=== PATIENT | female | born 1945 | race Hispanic/Latino ===

== ENCOUNTER 2019-09-19 07:58 | Inpatient (IN) | payer OTHER ==
--- NOTE | 2019-09-12 10:21 | RAD REPORT ---
EXAM DESCRIPTION: RAD - Chest Pa And Lat (2 Views) - 09/12/2019 10:04 am CLINICAL HISTORY: preop Chest pain. COMPARISON: No comparisons FINDINGS: The lungs are mildly emphysematous but clear. The heart is normal in size. No displaced fr actures. IMPRESSION: Mild COPD.
[2019-09-12 10:56] LABS: Absolute Lymphocytes (CBC) 1.7 K/uL (0.7-4.9); Basophils % 1.1 % (0-1.3); Hematocrit 39.6 % (36.0-45.0); Lymphocytes % 28.8 % (15.3-44.8); MPV 8.7 fL (7.6-11.3); RBC Red Blood Cell Count 4.43 M/uL (3.86-4.86)
[2019-09-12 11:00] LABS: Protime INR 1.05
[2019-09-12 11:05] LABS: BUN Blood Urea Nitrogen 15 mg/dL (7-18); Bicarbonate 32 mmol/L (21-32); Glucose Level 83 mg/dL (74-106); Potassium 3.6 mmol/L (3.5-5.1); Sodium Level 140 mmol/L (136-145)
--- NOTE | 2019-09-12 11:57 | EKG ---
Test Date: 2019-09-12 Test Time: 09:42:04 Groundskeeper Supervisor: FAZAL MEASUREMENT RESULTS: Intervals: Rate: 59 GA: 146 QRSD: 88 QT: 414 QTc: 409 Cushing: P: 8 GA: 146 QRS: 0 T: 60 INTERPRETIVE STATEMENTS: Sinus bradycardia Otherwise normal ECG Compared to ECG 10/04/2016 13:23:08 Sinus rhythm no longer present Electronically Signed On 09-12-19 11:56:25 LOG CUT OFF SAWYER by Madi Ledesma
[~2019-09-19 07:58] MED LIST: LIDOCAINE 2% MPF 5 ML VIAL ONE
--- OUTSIDE RECORDS SUMMARY | 2019-09-19 08:01 | XMS REPORT ---
:1945 [facility] Address [address] [place] [address] Dr. Reyes. [address] [place] [id number] Care Team Providers Name Role Phone DR MERCED DELVALLE Unavailable Unavailable Problems This patient has no known problems. Allergies, Adverse Reactions, Alerts This patient has no known allergies or adverse reactions. Medications This patient has no known medications. Encounters Start End Encounter Admission Attending Care Care Encounter Date/Time Date/Time Type Type Clinicians Facility Department ID 2017-01-20 Inpatient MENDY BROOKS [facility] [id number] 05:00:00 MERCED
[2019-09-19] MEDS ORDERED: Ringers Lactate 1,000 ML IV ONE ×2 (08:50→10:28)
[2019-09-19] MEDS ORDERED: CEFAZOLIN/SWI 1gm 1 GM/10 ML SYR ONE (08:50)
[2019-09-19] MEDS ORDERED: MIDAZOLAM HCL 2 MG/2 ML INJ ONE (09:21)
[2019-09-19] MEDS ORDERED: FENTANYL CITR 100 MCG/2 ML ONE (09:21)
[2019-09-19] MEDS ORDERED: BUPIVACAINE 0.25% PF 10 ML VIAL ONE (09:22)
[2019-09-19] MEDS ORDERED: propofoL 200 MG/20 ML VIAL IV ONE (09:59)
[2019-09-19] MEDS ORDERED: LIDOCAINE 2% MPF 5 ML VIAL ONE (09:59)
[2019-09-19] MEDS ORDERED: ROCURONIUM 50 MG/5 ML VIAL IV ONE (09:59)
[2019-09-19] MEDS ORDERED: TRANEXAMIC ACID 1,000 MG in NA CHLORIDE 0.9% 50 ML IV SCH (10:00)
[2019-09-19] MEDS ORDERED: KETAMINE HCL 500 MG/5 ML VIAL ONE (11:00)
[2019-09-19] MEDS: BUPIVACA 0.5%/EPI 0.0005%/PF 30 ML VIAL ONE ×2 (11:02→12:49)
[2019-09-19] MEDS ORDERED: HYDROMORPHONE HCL 1 MG/ML INJ ONE (11:06)
[2019-09-19] MEDS ORDERED: NS 0.9% VIAL 10 ML ONE (11:06)
[2019-09-19] MEDS ORDERED: KETOROLAC 30 MG/ML INJ ONE (13:33)
--- NOTE | 2019-09-19 13:37 | P.BOP ---
Preoperative diagnosis: knee osteoarthritis Postoperative diagnosis: same Primary procedure: right total knee arthroplasty Community Engagement Representative: NONE,NONE Estimated blood loss: 20 cc Specimen: right knee bone remnants Findings: see dictation Anesthesia: General Complications: None Drain(s): Urinary catheter Implants: Biomet Merle Persona, 9 Narrow CR femur, E tibia, 12 CR poly Fluids & blood products: per anesthesia record; TT: 115 mins @ 250 mmHg Transferred to: Recovery Room Condition: Good
[2019-09-19] MEDS ORDERED: DOCUSATE NA 100 MG CAP PO PRN (13:38)
[2019-09-19] MEDS ORDERED: MORPHINE 2 MG/ML SYR IV PRN (13:38)
--- NOTE | 2019-09-19 14:10 | RAD REPORT ---
EXAM DESCRIPTION: RAD - Knee Right 2 View - 09/19/2019 2:02 pm CLINICAL HISTORY: Post Op, right total knee prosthesis placement COMPARISON: No comparisons FINDINGS: Right knee prosthesis has been placed. Hardware appears well positioned with no suspicious or unexpected bone or implant finding. Skin mary are present in the midline. Normal postoperative soft tissue changes are seen. IMPRESSION: Right knee prosthesis placement images showing no suspicious or unexpected finding.
[2019-09-19] MEDS ORDERED: ONDANSETRON 4 MG/2 ML VIAL ONE (14:35)
[2019-09-19 14:38] LABS: Hematocrit 37.5 % (36.0-45.0)
[2019-09-19 15:56] VITALS: BMI 24.4
[2019-09-19] MEDS: CEFAZOLIN/SWI 1gm 1 GM/10 ML SYR IVP SCH (16:44)
[2019-09-19] MEDS ORDERED: PNEUMOCOCCAL VACCINE 0.5 ML IMVAC ONE (17:00)
[2019-09-19] MEDS: TRAMADOL HCL 50 MG TAB PO PRN (20:13)
[2019-09-20] MEDS: CEFAZOLIN/SWI 1gm 1 GM/10 ML SYR IVP SCH ×2 (01:26→08:49)
--- NOTE | 2019-09-20 01:34 | OP ---
Date of Procedure: 09/19/2019 Surgeon: Rodrigo Sommer MD Postoperative Diagnosis: Right knee osteoarthritis. Postoperative Diagnosis: Right knee osteoarthritis. Procedure Performed: Right total knee arthroplasty. Anesthesia: General LMA. Fluids: Per Anesthesia record. Estimated Blood Loss: 20 cc. Complications: None. Tourniquet Time: 150 minutes at 250 mmHg. Implants: A Biomet Merle Persona size 9 narrow CR femur, size E tibia, and 12 CR poly. Indication For Procedure: Sarah is a 74-year-old female presenting to my clinic with signs and symptoms consistent with severe osteoarthritis with valgus deformity. The patient failed conservative treatment measures including physical therapy, corticosteroid and viscosupplementation injection as well as bracing. She had significant valgus deformity. I discussed with the patient at length risks and benefits associated with operative and nonoperative treatment. She expressed understanding and elected to proceed with the operative treatment. Description Of Procedure: After informed consent was obtained, the patient was identified in the preoperative holding area. The right lower extremity was marked. The patient was then taken back to the PACU where she underwent an adductor canal block performed by Anesthesia. She was then taken back to the operating room, transferred to the operating table in the supine fashion and placed under general LMA anesthesia. Right lower extremity was then prepped and draped in the usual sterile fashion. A time-out was initiated. The correct patient and procedure were confirmed and identified. The patient did receive her preoperative prophylactic antibiotics. The right lower extremity was exsanguinated using an Esmarch and the tourniquet was inflated to 250 mmHg. Approximately 15 cm longitudinal incision was made over the anterior aspect of the knee centered over the patella. Dissection was then taken down to the extensor mechanism where a median parapatellar arthrotomy was performed. The patella was everted. There was no significant wear of the undersurface of the patella and no resurfacing was elected. Osteophytes were then debrided using a rongeur on the superior and inferior medial and lateral aspects of the patella. Medial capsular tissue was then elevated off the proximal tibial for exposure. Infrapatellar fat pad was excised as well as medial and lateral menisci as well as the ACL. Preoperatively, the patient had an MRI for creation of the cutting block guide. The guide was then placed over the distal femur and pinned into position and first a distal femoral cutting guide was placed over the pins and the distal femoral cut was then placed. The 4 in 1 cutting guide was then placed over the distal aspect of the distal femur and anterior and posterior cuts were made as well as anterior and posterior chamfer cuts. A size 9 CR femur was then selected, narrow size was selected as well and was put into position. Next, the proximal tibial femoral guide was then placed, tamped into position over the proximal tibia and pins were placed. Alignment kristi was then placed and there was good overall alignment with posterior slope as well as varus/valgus alignment. The proximal tibia cutting guide was then placed and the proximal tibia was cut until the 10 mm spacer fit well in both flexion and extension. There was significant instability. Posterolateral capsule was gently released as well as the IT band was pie crusted given the patient's significant valgus deformity to aid with fit laterally. After this was completed, there was good overall stability and fit in flexion and extension. The trial components were then placed using a size 9 femur and a size E tibia with a 12 mm poly. There was good overall range of motion and stability. After this was confirmed, the wound was then irrigated thoroughly with normal saline. The knee was then injected with 30 mL of 5% Marcaine with epinephrine in the posterior capsule, periosteum, and quad tendon and muscle as well as the anterior soft tissues of the tibia. The femur was drilled as well as the tibia was punched. The cement was prepared on the back table and placed on the tibia. Final tibial component was placed, which was incised E tibia. Excess cement was then removed using a [place] elevator followed by placement of the 9 narrow CR femur. Excess cement was removed using a [place] elevator. Size 12 mm poly was then placed. The knee was held in extension as the cement hardened. The knee was then ranged. There was good overall patellar tracking as well as stability in flexion and extension. The final size 12 CR poly was then placed and locked into position. The wound was then irrigated thoroughly with normal saline. Tourniquet was let down. Hemostasis was achieved using Bovie electrocautery. The extensor mechanism was then approximated using a #1 Vicryl in an interrupted and running fashion. The superficial fascia was approximated using a 0 Vicryl. The subcutaneous tissue was approximated using a 2-0 Vicryl. Skin was approximated using mary. Sterile dressings were applied. The patient was awakened and transferred to the PACU in stable condition. Postoperative Plan: Physical Therapy will be consulted to aid with mobilization. The patient is to stay for least 2 midnights and will plan on transfer to inpatient rehabilitation as patient does live by herself and is debilitated and will need significant postoperative physical therapy to regain independence. CV/MODL Voice ID: [id number] Report ID: [id number]
[2019-09-20] MEDS: HYDROCODONE/APAP 7.5/325 MG TAB PO PRN ×2 (02:25→18:05)
[2019-09-20] MEDS: ENOXAPARIN 30 MG/0.3 ML SQ SCH ×3 (05:19→20:27)
[2019-09-20 05:54] LABS: Absolute Lymphocytes (CBC) 1.7 K/uL (0.7-4.9); Basophils % 0.1 % (0-1.3); Hematocrit 31.5 % (36.0-45.0); MPV 8.9 fL (7.6-11.3); RBC Red Blood Cell Count 3.59 M/uL (3.86-4.86)
[2019-09-20 06:10] LABS: BUN Blood Urea Nitrogen 13 mg/dL (7-18); Bicarbonate 30 mmol/L (21-32); Glucose Level 95 mg/dL (74-106); Potassium 3.7 mmol/L (3.5-5.1); Sodium Level 137 mmol/L (136-145)
--- NOTE | 2019-09-20 07:55 | P.PN ---
Subjective Date of Service: 09/20/19 Chief Complaint: s/p R TKA Subjective: Improving, Working w/ PT pain controlled; reports some heel pain from use of CPM; heel padded at this time Physical Examination - Vital Signs Temperature: 98.6 F Blood Pressure: 110/59 Pulse: 66 Respirations: 14 Pulse Ox (%): 97 - Physical Exam General: Alert, In no apparent distress Musculoskeletal: Other (RLE: dressing c/d/i; +EHL/FHL/GSC/TA; sensation grossly intact distally; heel padded) - Studies Laboratory Data (last 24 hrs) 09/20/19 05:04: Sodium 137, Potassium 3.7, BUN 13, Creatinine 0.62, Glucose 95 09/20/19 05:04: WBC 11.1 H D, Hgb 10.9 L, Hct 31.5 L D, Plt Count 230 D 09/19/19 14:00: Hgb 12.5, Hct 37.5 Assessment And Plan - Plan Sarah is a 74 yo female s/p right total knee arthroplasty POD#1 -d/c michel tang -lovenox for DVT prophylaxis -acute expected postoperative blood loss anemia; recheck h/h in AM -inpatient rehab pending eval at [facility]
[2019-09-20] MEDS: CELECOXIB 100 MG CAPSULE PO SCH (08:49)
[2019-09-20] MEDS: TRAMADOL HCL 50 MG TAB PO PRN ×2 (14:50→22:12)
[2019-09-21] MEDS: HYDROCODONE/APAP 7.5/325 MG TAB PO PRN ×2 (03:48→21:00)
[2019-09-21 04:37] LABS: Absolute Lymphocytes (CBC) 1.7 K/uL (0.7-4.9); Basophils % 0.4 % (0-1.3); Hematocrit 30.1 % (36.0-45.0); Lymphocytes % 18.5 % (15.3-44.8); MPV 8.5 fL (7.6-11.3); RBC Red Blood Cell Count 3.31 M/uL (3.86-4.86)
[2019-09-21] MEDS: CELECOXIB 100 MG CAPSULE PO SCH (08:53)
[2019-09-21] MEDS: ENOXAPARIN 30 MG/0.3 ML SQ SCH ×2 (08:53→20:58)
[2019-09-21] MEDS: TRAMADOL HCL 50 MG TAB PO PRN ×2 (10:43→17:20)
--- NOTE | 2019-09-21 11:22 | P.PN ---
Subjective Date of Service: 09/21/19 Chief Complaint: s/p R TKA Subjective: Ambulating, Working w/ PT pain controlled; progressing with physical therapy Physical Examination - Vital Signs Temperature: 98.2 F Blood Pressure: 104/57 Pulse: 86 Respirations: 18 Pulse Ox (%): 98 - Physical Exam General: Alert, In no apparent distress Musculoskeletal: Other (RLE: dressing c/d/i; +EHL/FHL/GSC/TA; sensation grossly intact distally) - Studies Laboratory Data (last 24 hrs) 09/21/19 04:03: WBC 9.2 D, Hgb 10.3 L, Hct 30.1 L, Plt Count 219 Assessment And Plan - Plan Sarah is a 74 yo female s/p right total knee arthroplasty POD#2 -continue with PT; WBAT RLE -lovenox for DVT prophylaxis -h/h stabilizing -inpatient rehab pending eval at [facility]
[2019-09-22] MEDS: TRAMADOL HCL 50 MG TAB PO PRN ×2 (04:20→17:59)
[2019-09-22] MEDS: ENOXAPARIN 30 MG/0.3 ML SQ SCH ×2 (08:06→19:57)
[2019-09-22] MEDS: HYDROCODONE/APAP 7.5/325 MG TAB PO PRN ×2 (08:07→19:58)
[2019-09-22] MEDS: CELECOXIB 100 MG CAPSULE PO SCH (08:07)
--- NOTE | 2019-09-22 23:05 | P.PN ---
Subjective Date of Service: 09/22/19 Chief Complaint: s/p R TKA Subjective: Improving, Working w/ PT pain controlled; progressing with physical therapy Physical Examination - Vital Signs Temperature: 98.9 F Blood Pressure: 150/67 Pulse: 103 Respirations: 18 Pulse Ox (%): 100 - Physical Exam General: Alert, In no apparent distress Musculoskeletal: Other (RLE: dressing c/d/i; moves knee without pain; NVI distally) Assessment And Plan - Plan Sarah is a 74 yo female s/p right total knee arthroplasty POD#3 -continue with PT; WBAT RLE -lovenox for DVT prophylaxis -recommended inpatient rehab however was denied by her insurance company -await possible transfer and approval to SNF as patient lives alone and is not safe for discharge home at this time
[2019-09-23] MEDS: TRAMADOL HCL 50 MG TAB PO PRN (00:54)
[2019-09-23] MEDS: HYDROCODONE/APAP 7.5/325 MG TAB PO PRN ×3 (06:32→20:44)
[2019-09-23] MEDS: CELECOXIB 100 MG CAPSULE PO SCH (08:46)
[2019-09-23] MEDS: ENOXAPARIN 30 MG/0.3 ML SQ SCH ×2 (08:47→20:42)
--- NOTE | 2019-09-23 12:07 | P.PN ---
Subjective Date of Service: 09/23/19 Chief Complaint: s/p R TKA Subjective: Ambulating, Improving, Working w/ PT pain controlled; progressing with physical therapy Physical Examination - Vital Signs Temperature: 97.6 F Blood Pressure: 126/64 Pulse: 71 Respirations: 16 Pulse Ox (%): 96 - Physical Exam General: Alert, In no apparent distress Musculoskeletal: Other (RLE: dressing c/d/i; +EHL/FHL/GSC/TA; sensation grossly intact distally) Assessment And Plan - Plan Sarah is a 74 yo female s/p right total knee arthroplasty POD#4 -continue with PT; WBAT RLE -lovenox for DVT prophylaxis -await possible transfer and approval to SNF as patient lives alone and is not safe for discharge home at this time
[2019-09-24] MEDS: TRAMADOL HCL 50 MG TAB PO PRN (01:08)
[2019-09-24] MEDS: HYDROCODONE/APAP 7.5/325 MG TAB PO PRN ×3 (06:38→19:16)
[2019-09-24] MEDS: ENOXAPARIN 30 MG/0.3 ML SQ SCH ×2 (08:02→21:26)
[2019-09-24] MEDS: CELECOXIB 100 MG CAPSULE PO SCH (08:02)
--- NOTE | 2019-09-24 12:35 | P.PN ---
Subjective Date of Service: 09/24/19 Chief Complaint: s/p R TKA Subjective: Ambulating, Improving, Working w/ PT pain controlled Physical Examination - Vital Signs Temperature: 97.5 F Blood Pressure: 117/57 Pulse: 80 Respirations: 18 Pulse Ox (%): 99 - Physical Exam General: Alert, In no apparent distress Musculoskeletal: Other (RLE: incision c/d/i; no erythema or active drainage; + ecchymoses over the medial knee; NVI distally) Assessment And Plan - Plan Sarah is a 74 yo female s/p right total knee arthroplasty POD#5 -dressing changed today without complication -continue with PT; WBAT RLE -lovenox for DVT prophylaxis -await possible transfer and approval to SNF as patient lives alone and is not safe for discharge home at this time
[2019-09-25 00:33] VITALS: O2SAT 99
[2019-09-25] MEDS: HYDROCODONE/APAP 7.5/325 MG TAB PO PRN ×2 (03:17→08:44)
[2019-09-25] MEDS: CELECOXIB 100 MG CAPSULE PO SCH (08:43)
[2019-09-25] MEDS: ENOXAPARIN 30 MG/0.3 ML SQ SCH (08:44)
[2019-09-25] MEDS: TRAMADOL HCL 50 MG TAB PO PRN (11:12)
[2019-09-25 14:53] VITALS: BP 111/59; TEMP 98.3
== END 2019-09-25 11:53 | DRG 470 ==
LOC: OR 07:58 → 2ND 14:01
PROVIDERS: ADMIT Orthopaedic Surgery Sports Medicine; ATTEND Orthopaedic Surgery Sports Medicine
PROC: 0SRC0J9 Replacement of Right Knee Joint with Synthetic Substitute, Cemented, Open Approach (ICD-10-PCS; principal; 2019-09-19 09:30)
DX: M17.11 Unilateral primary osteoarthritis, right knee (principal); D62 Acute posthemorrhagic anemia; I10 Essential (primary) hypertension; E78.5 Hyperlipidemia, unspecified
CPT/HCPCS: 36415; 71046; 80048; 85014; 85018; 85025; 85610; 85730; 88304; 88311; 93005; 97110; 97116; 97139; 97161; 97530; J0690; J1170; J1650; J2250; J2405; J2704; J3010; J7120

== ENCOUNTER 2022-10-25 15:42 | Emergency (ER) | payer OTHER ==
--- OUTSIDE RECORDS SUMMARY | 2022-10-25 16:08 | XMS REPORT | Continuity of Care Document ---
:1945 Author Organization [facility] t Address [address] [facility] [address] [place] [address] Care Team Providers Name Role Phone Nicki BUSTOS Attending Clinician Unavailable [id number] Attending Clinician Unavailable Anya Hernandez Attending Clinician Unavailable DR MERCED DELVALLE Attending Clinician Unavailable RYAN Attending Clinician Unavailable SWATHI BARTLETT Attending Clinician Unavailable [id number] Admitting Clinician Unavailable DR MERCED DELVALLE Admitting Clinician Unavailable RYAN Admitting Clinician Unavailable Payers Payer Name Policy Type Policy Number Effective Date Expiration Date Malick chisholm [facility]Select 1 [id number] 2021 Common TRS/ERS MCR PPO 00:00:00 [facility] - [facility] MEDICARE NOVITAS [id number] Common [facility] [employer] MEDICARE [id number] 2017 ERS 00:00:00 Problems Condition Condition Condition Status Onset Resolution Last Treating Co mments Source Name Details Category Date Date Treatment Clinician Date [id number] Unspecifie Problem C ommon [id number] d rotator Spirit cuff tear - [facility]I or rupture St of left [facility] shoulder, Medical not Center specified as traumatic [id number] Other Problem Common specific [facility] arthropath - [facility]I ies, not St elsewhere [facility] classified Medica l , left Center shoulder [id number] Chronic Problem Common fatigue [facility] - [facility] [id number] Menopausal Problem Com mon vaginal [facility] dryness - [facility] Fibrocysti Fibrocysti Problem C ommon c breast c breast [facility] changes [facility] Vitamin D Vitamin D Problem Com mon deficiency deficiency Sp [facility] Abnormal Abnormal Problem Commo n mammogram mammogram Spir [facility] Hyperlipid Hyperlipid Problem C ommon emia emia, Spirit unspecifie - CHI d hyperlipid [facility] emia type [facility] Center [id number] Primary Problem Comm on osteoarthr [facility] right knee [facility] Diverticul Diverticul Problem C ommon ar disease ar disease Sp [facility] [id number] Seasonal Problem Comm on allergies [facility] [id number] Aftercare Problem Com tue following [facility] joint [facility] replacemen [facility] [id number] Tinnitus Problem Com tue of both [facility] ears [facility] [id number] Vaginal Problem Commo n bleeding [facility] [id number] 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 [facility] [id number] Osteoporos Problem Com mon is, [facility] unspecifie - CHI d osteoporos [facility] is type, Medical unspecifie Center d pathologic al fracture presence [id number] Allergic Problem Commo n rhinitis, Spirit unspecifie - CHI d seasonalit [facility] y, Medical unspecifie Center d trigger Allergies, Adverse Reactions, Alerts Allergy Allergy Status Severity Reaction(s) Onset Inactive Treating Comm ents Source Name Type Date Date Clinician NO KNOWN Drug Active Univers ALLERGIE Class ity of [facility] gabapent gabapent Active Unknown Commo n in in [facility] Social History Social Habit Start Date Stop Date Quantity Comments Source History of Tobacco Use Co mmon [facility] Sex Assigned At Com mon [facility] Smoking Status Start Date Stop Date Source Never Smoker Common [facility] Medications Ordered Filled Start Stop Current Ordering Indication Dosage Frequency Signature Comments Components Source Medication Medication Date Date Medication? Clinician (SIG) Name Name Kenalog Kenalog No 40mg Common (Triamcinol (Triamcinol 9-13 S pirit one) one) 00:00: - CHI 00 [facility] Ketorolac Ketorolac 2022-0 No 60mg Com mon 15mg 15mg 04-20 Spirit 00:00: - CHI 00 [facility] Kenalog Kenalog 2-0 No 40mg Common (Triamcinol (Triamcinol 9-13 S pirit one) one) 00:00: - [facility]I 00 [facility] Ketorolac Ketorolac 2022-0 No 60mg Com mon 15mg 15mg 04-20 Spirit 00:00: - [facility]I 00 [facility] Kenalog Kenalog 2-0 No 40mg Common (Triamcinol (Triamcinol 9-13 S pirit one) one) 00:00: - [facility]I 00 [facility] Ketorolac Ketorolac 2-0 No 60mg Com mon 15mg 15mg 04-20 Spirit 00:00: - [facility]I 00 [facility] Kenalog Kenalog 2-0 No 40mg Common (Triamcinol (Triamcinol 9-13 S pirit one) one) 00:00: - [facility]I 00 [facility] Ketorolac Ketorolac 2-0 No 60mg Com mon 15mg 15mg 04-20 Spirit 00:00: - [facility]I 00 [facility] Naproxen Naproxen 2-0 2022- No 1{table BID Naproxen 250 MG 250 MG 04-20 t_as_ne 250 MG 00:00: 00:00 eded} 00 :00 Naproxen Naproxen 2022-0 2022- No 1{table BID Naproxen 250 MG 250 MG 04-20 t_as_ne 250 MG 00:00: 00:00 eded} 00 :00 Naproxen Naproxen 2022-0 2022- No 1{table BID Naproxen 250 MG 250 MG 04-20 t_as_ne 250 MG 00:00: 00:00 eded} 00 :00 Naproxen Naproxen 2-0 2022- No 1{table BID Naproxen 250 MG 250 MG 04-20 t_as_ne 250 MG 00:00: 00:00 eded} 00 :00 Estrace 0.1 Estrace 0.1 2021-0 No Estrace MG/GM MG/GM 5-31 0.1 MG/GM 00:00: 00 Estrace 0.1 Estrace 0.1 2021-0 No Estrace MG/GM MG/GM 5-31 0.1 MG/GM 00:00: 00 Estrace 0.1 Estrace 0.1 2021-0 No Estrace MG/GM MG/GM 5-31 0.1 MG/GM 00:00: 00 Estrace 0.1 Estrace 0.1 2021-0 No Estrace MG/GM MG/GM 5-31 0.1 MG/GM 00:00: 00 Estrace 0.1 Estrace 0.1 2021-0 No Estrace MG/GM MG/GM 5-31 0.1 MG/GM 00:00: 00 Estrace 0.1 Estrace 0.1 No Estrace MG/GM MG/GM 5-31 0.1 MG/GM 00:00: 00 Estrace 0.1 Estrace 0.1 No Estrace MG/GM MG/GM 5-31 0.1 MG/GM 00:00: 00 Medrol 4 MG Medrol 4 MG 2021-0 2021- No QD Medrol 4 5-03 05-09 MG 00:00: 00:00 00 :00 Montelukast Montelukast 2020-0 No 1{table Montelukas Sodium 10 Sodium 01-07 t} t Sodium MG MG 00:00: 10 MG 00 Flonase 50 Flonase 50 2020-0 No 2{spray QD Flonase 50 MCG/ACT MCG/ACT 01-07 _in_eac MCG/ACT 00:00: h_nostr 00 il} Montelukast Montelukast 2020-0 No 1{table Montelukas Sodium 10 Sodium 01-07 t} t Sodium MG MG 00:00: 10 MG 00 Flonase 50 Flonase 50 2020-0 No 2{spray QD Flonase 50 MCG/ACT MCG/ACT 01-07 _in_eac MCG/ACT 00:00: h_nostr 00 il} Montelukast Montelukast 2020-0 No 1{table Montelukas Sodium 10 Sodium 10 01-07 t} t Sodium MG MG 00:00: 10 MG 00 Flonase 50 Flonase 50 2020-0 No 2{spray QD Flonase 50 MCG/ACT MCG/ACT 6- _in_eac MCG/ACT 00:00: h_nostr 00 il} Flonase 50 Flonase 50 No 2{spray QD Flonase 50 MCG/ACT MCG/ACT 6-02 _in_eac MCG/ACT 00:00: h_nostr 00 il} Montelukast Montelukast 2020-0 No 1{table Montelukas Sodium 10 Sodium 10 6-02 t} t Sodium MG MG 00:00: 10 MG 00 Flonase 50 Flonase 50 2020- No 2{spray QD Flonase 50 MCG/ACT MCG/ACT 01-07 _in_eac MCG/ACT 00:00: h_nostr 00 il} Montelukast Montelukast 2020- No 1{table Montelukas Sodium 10 Sodium 10 6-02 t} t Sodium MG MG 00:00: 10 MG 00 Montelukast Montelukast 0 No 1{table Montelukas Sodium 10 Sodium 10 6-02 t} t Sodium MG MG 00:00: 10 MG 00 Montelukast Montelukast 2020-0 No 1{table Montelukas Sodium 10 Sodium 10 6-02 t} t Sodium MG MG 00:00: 10 MG 00 Montelukast Montelukast 2020-0 No 1{table Montelukas Sodium 10 Sodium 10 6-02 t} t Sodium MG MG 00:00: 10 MG 00 Montelukast Montelukast 2020-0 No 1{table Montelukas Sodium 10 Sodium 10 6-02 t} t Sodium MG MG 00:00: 10 MG 00 Azelastine Azelastine 2019-0 Yes Rodrigo 1 puff in Common HCl HCl 8-11 [place] each Spirit 00:00: nostril - [facility]I 00 [facility] Montelukast Montelukast 2019-0 Yes Rodrigo 1 tablet Common Sodium Sodium 7-13 [place] Spirit 00:00: - [facility]I 00 [facility] Flonase Flonase 2019-0 Yes Rodrigo 2 spray in Common 7-13 [place] each Spirit 00:00: nostril - CHI 00 [facility] Cetirizine Cetirizine 2019-0 Yes Rodrigo 1 tablet Common HCl HCl 7-13 [place] Spirit 00:00: - [facility]I 00 [facility] Tramadol Tramadol 2020-0 Yes Rodrigo 1 tablet Common HCl HCl 6-08 [place] as needed Spirit 00:00: - [facility]I 00 [facility] traMADol traMADol 2020-0 No 1{table traMADol HCl 50 MG HCl 50 MG 6-08 t_as_ne HCl 50 MG 00:00: eded} 00 traMADol traMADol 2020-0 No 1{table traMADol HCl 50 MG HCl 50 MG 6-08 t_as_ne HCl 50 MG 00:00: eded} 00 traMADol traMADol 2020-0 No 1{table traMADol HCl 50 MG HCl 50 MG 6-08 t_as_ne HCl 50 MG 00:00: eded} 00 traMADol traMADol 2020-0 No 1{table traMADol HCl 50 MG HCl 50 MG 6-08 t_as_ne HCl 50 MG 00:00: eded} 00 traMADol traMADol 2020-0 No 1{table traMADol HCl 50 MG HCl 50 MG 6-08 t_as_ne HCl 50 MG 00:00: eded} 00 traMADol traMADol 2020-0 No 1{table traMADol HCl 50 MG HCl 50 MG 6-08 t_as_ne HCl 50 MG 00:00: eded} 00 traMADol traMADol 2020-0 No 1{table traMADol HCl 50 MG HCl 50 MG 6-08 t_as_ne HCl 50 MG 00:00: eded} 00 traMADol traMADol 2020-0 No 1{table traMADol HCl 50 MG HCl 50 MG 6-08 t_as_ne HCl 50 MG 00:00: eded} 00 traMADol traMADol 2020-0 No 1{table traMADol HCl 50 MG HCl 50 MG 6-08 t_as_ne HCl 50 MG 00:00: eded} 00 Kenalog Kenalog 2019-1 No 40mg Common (Triamcinol (Triamcinol 0-07 S pirit one) one) 00:00: - [facility] Kenalog Kenalog 2018-1 No 40mg Common (Triamcinol (Triamcinol 0-07 S pirit one) one) 00:00: - [facility] Kenalog Kenalog 2019- No 40mg Common (Triamcinol (Triamcinol 0-07 S pirit one) one) 00:00: - CHI 00 [facility] [place] Kenalog 2018- No 40mg Common (Triamcinol (Triamcinol 0-07 S pirit one) one) 00:00: - CHI 00 [facility] [place] Kenalog 2018- No 40mg Common (Triamcinol (Triamcinol 0-07 S pirit one) one) 00:00: - CHI 00 [facility] [place] Kenalog 2018- No 40mg Common (Triamcinol (Triamcinol 0-07 S pirit one) one) 00:00: - [facility]I 00 [facility] [place] 2018- No 40mg Common (Triamcinol (Triamcinol 0-07 S pirit one) one) 00:00: - [facility]I 00 [facility] [place] 2018- No 40mg Common (Triamcinol (Triamcinol 0-07 S pirit one) one) 00:00: - CHI 00 [facility] [place] 2018- No 40mg Common (Triamcinol (Triamcinol 0-07 S pirit one) one) 00:00: - CHI 00 [facility] [place] 2018- No 40mg Common (Triamcinol (Triamcinol 0-07 S pirit one) one) 00:00: - CHI 00 [facility] [place] Kenalog 2018- No 40mg Common (Triamcinol (Triamcinol 0-07 S pirit one) one) 00:00: - CHI 00 [facility] [place] Kenalog 2019- No 40mg Common (Triamcinol (Triamcinol 0-07 S pirit one) one) 00:00: - CHI 00 [facility] Kenalog 2019- No 40mg Common (Triamcinol (Triamcinol 0-07 S pirit one) one) 00:00: - CHI 00 [facility] [place] Kenalog 2019- No 40mg Common (Triamcinol (Triamcinol 0-07 S pirit one) one) 00:00: - [facility]I 00 [facility] Kenalog 2019-1 No 40mg Common (Triamcinol (Triamcinol 0-07 S pirit one) one) 00:00: - CHI 00 [facility] Kenalog Kenalog 2018-0 No 40mg Common (Triamcinol (Triamcinol 5-24 S pirit one) one) 00:00: - CHI 00 [facility] Dexamethaso Dexamethaso 2018-0 No 10mg Common ne ne 5-24 Spirit 00:00: - CHI 00 [facility] Kenalog Kenalog 2018-0 No 40mg Common (Triamcinol (Triamcinol 5-24 S pirit one) one) 00:00: - CHI 00 [facility] Dexamethaso Dexamethaso 2018-0 No 10mg Common ne ne 5-24 Spirit 00:00: - [facility]I 00 [facility] Kenalog Kenalog 2018-0 No 40mg Common (Triamcinol (Triamcinol 5-24 S pirit one) one) 00:00: - CHI 00 [facility] Dexamethaso Dexamethaso 2018-0 No 10mg Common ne ne 5-24 Spirit 00:00: - CHI 00 [facility] Kenalog Kenalog 2018-0 No 40mg Common (Triamcinol (Triamcinol 5-24 S pirit one) one) 00:00: - CHI 00 [facility] Dexamethaso Dexamethaso 2018-0 No 10mg Common ne ne 5-24 Spirit 00:00: - CHI 00 [facility] Kenalog Kenalog 2018-0 No 40mg Common (Triamcinol (Triamcinol 5-24 S pirit one) one) 00:00: - CHI 00 [facility] Dexamethaso Dexamethaso 2018-0 No 10mg Common ne ne 5-24 Spirit 00:00: - CHI 00 [facility] Kenalog Kenalog 2018-0 No 40mg Common (Triamcinol (Triamcinol 5-24 S pirit one) one) 00:00: - CHI 00 [facility] Dexamethaso Dexamethaso 2018-0 No 10mg Common ne ne 5-24 Spirit 00:00: - CHI 00 [facility] Kenalog Kenalog 2018-0 No 40mg Common (Triamcinol (Triamcinol 5-24 S pirit one) one) 00:00: - CHI 00 [facility] Dexamethaso Dexamethaso 2018-0 No 10mg Common ne ne 5-24 Spirit 00:00: - CHI 00 [facility] Kenalog Kenalog 2018-0 No 40mg Common (Triamcinol (Triamcinol 5-24 S pirit one) one) 00:00: - CHI 00 [facility] Dexamethaso Dexamethaso 2018-0 No 10mg Common ne ne 5-24 Spirit 00:00: - CHI 00 [facility] Kenalog Kenalog 2018-0 No 40mg Common (Triamcinol (Triamcinol 5-24 S pirit one) one) 00:00: - CHI 00 [facility] Dexamethaso Dexamethaso 2018-0 No 10mg Common ne ne 5-24 Spirit 00:00: - CHI 00 [facility] Kenalog Kenalog 2018-0 No 40mg Common (Triamcinol (Triamcinol 5-24 S pirit one) one) 00:00: - CHI 00 [facility] Dexamethaso Dexamethaso 2018-0 No 10mg Common ne ne 5-24 Spirit 00:00: - CHI 00 [facility] Kenalog Kenalog 2018-0 No 40mg Common (Triamcinol (Triamcinol 5-24 S pirit one) one) 00:00: - CHI 00 [facility] Dexamethaso Dexamethaso 2018-0 No 10mg Common ne ne 5-24 Spirit 00:00: - CHI 00 [facility] Kenalog Kenalog 2018-0 No 40mg Common (Triamcinol (Triamcinol 5-24 S pirit one) one) 00:00: - CHI 00 [facility] Dexamethaso Dexamethaso 2018-0 No 10mg Common ne ne 5-24 Spirit 00:00: - CHI 00 [facility] Kenalog Kenalog 2018-0 No 40mg Common (Triamcinol (Triamcinol 5-24 S pirit one) one) 00:00: - CHI 00 [facility] Dexamethaso Dexamethaso 2018-0 No 10mg Common ne ne 5-24 Spirit 00:00: - CHI 00 [facility] Kenalog Kenalog No 40mg Common (Triamcinol (Triamcinol 5-24 S pirit one) one) 00:00: - CHI [facility] Dexamethaso Dexamethaso 2018- No 10mg Common ne ne 5-24 Spirit 00:00: - [facility] Kenalog Kenalog No 40mg Common (Triamcinol (Triamcinol 5-24 S pirit one) one) 00:00: - CH[facility] Dexamethaso Dexamethaso 0 No 10mg Common ne ne 5-24 Spirit 00:00: - [facility] Fluticasone Fluticasone Yes Rodrigo not Common Propionate Propionate [place] defined [facility] Virtussin Virtussin Yes Rodrigo not Co mmon A/C A/C [place] defined [facility] Baclofen Baclofen Yes Rodrigo not Comm on [place] defined [facility] Nabumetone Nabumetone Yes Rodrigo not Common [place] defined [facility] Vit E-Vit Vit E-Vit Yes Rodrigo not Co mmon K-Safflower K-Safflower [place] defined [facility] Oil Oil [facility] [place] 3-6-9 [place] 3-6-9 Yes Rodrigo not Common [place] defined [facility] Tramadol Tramadol Yes Rodrigo not Comm on HCl HCl [place] defined [facility] Gabapentin Gabapentin Yes Rodrigo not Common [place] defined [facility] Duloxetine Duloxetine Yes Rodrigo not Common HCl HCl [place] defined [facility] Prevagen Prevagen Yes Rodrigo 1 tablet Common [place] [facility] Tizanidine Tizanidine Yes Rodrigo not Common HCl HCl [place] defined [facility] Ibuprofen Ibuprofen Yes Rodrigo not Co mmon [place] defined [facility] Centrum Centrum Yes Rodrigo as Common Silver Silver [place] directed [facility] Amoxicillin Amoxicillin Yes Rodrigo not Common -Pot -Pot [place] defined [facility] Clavulanate Clavulanate [facility] Fluzone Fluzone Yes Rodrigo not Common High-Dose High-Dose [place] defined Sp ashlie [facility] [place] 3-6-9 [place] 3-6-9 No [place] 3-6-9 Centrum Centrum No Centrum Silver - Silver - Silver - Vit E-Vit Vit E-Vit No Vit E-Vit K-Safflower K-Safflower K-Safflowe Oil Oil r Oil Cetirizine Cetirizine No 1{table Cetirizine HCl 10 MG HCl 10 MG t} HCl 10 MG Cetirizine Cetirizine No 1{table Cetirizine HCl 10 MG HCl 10 MG t} HCl 10 MG traMADol traMADol No traMADol HCl HCl HCl Virtussin Virtussin No Virtussin A/C A/C A/C tiZANidine tiZANidine No tiZANidine HCl HCl HCl Macrobid Macrobid No 1{capsu BID Macrobid 100 MG 100 MG le_with 100 MG _food} Fluticasone Fluticasone No Fluticason Propionate Propionate e Propionate Azelastine Azelastine No 1{puff_ BID Azelastine HCl 137 HCl 137 in_each HCl 137 MCG/SPRAY MCG/SPRAY _nostri MCG/SPRAY l} Baclofen Baclofen No Baclofen Flonase 50 Flonase 50 No 2{spray QD Flonase 50 MCG/ACT MCG/ACT _in_eac MCG/ACT h_nostr il} DULoxetine DULoxetine No DULoxetine HCl HCl HCl Centrum Centrum No Centrum Silver - Silver - Silver - Montelukast Montelukast No 1{table Montelukas Sodium 10 Sodium 10 t} t Sodium MG MG 10 MG Fluzone Fluzone No Fluzone High-Dose High-Dose High-Dose Gabapentin Gabapentin No Gabapentin Ibuprofen Ibuprofen No Ibuprofen Nabumetone Nabumetone No Nabumetone Amoxicillin Amoxicillin No Amoxicilli -Pot -Pot n-Pot Clavulanate Clavulanate Clavulanat e Estradiol Estradiol No Estradiol 0.1 MG/GM 0.1 MG/GM 0.1 MG/GM Vit E-Vit Vit E-Vit No Vit E-Vit K-Safflower K-Safflower K-Safflowe Oil Oil r Oil [place] 3-6-9 [place] 3-6-9 No [place] 3-6-9 Prevagen 10 Prevagen 10 No 1{table QD Prevagen MG MG t} 10 MG Azelastine Azelastine No 1{puff_ BID Azelastine HCl 137 HCl 137 in_each HCl 137 MCG/SPRAY MCG/SPRAY _nostri MCG/SPRAY l} Estradiol Estradiol No Estradiol 0.1 MG/GM 0.1 MG/GM 0.1 MG/GM tiZANidine tiZANidine No tiZANidine HCl HCl HCl Amoxicillin Amoxicillin No Amoxicilli -Pot -Pot n-Pot Clavulanate Clavulanate Clavulanat e Flonase 50 Flonase 50 No 2{spray QD Flonase 50 MCG/ACT MCG/ACT _in_eac MCG/ACT h_nostr il} Macrobid Macrobid No 1{capsu BID Macrobid 100 MG 100 MG le_with 100 MG _food} Gabapentin Gabapentin No Gabapentin Virtussin Virtussin No Virtussin A/C A/C A/C DULoxetine DULoxetine No DULoxetine HCl HCl HCl Fluticasone Fluticasone No Fluticason Propionate Propionate e Propionate Prevagen 10 Prevagen 10 No 1{table QD Prevagen MG MG t} 10 MG Cetirizine Cetirizine No 1{table Cetirizine HCl 10 MG HCl 10 MG t} HCl 10 MG Montelukast Montelukast No 1{table Montelukas Sodium 10 Sodium 10 t} t Sodium MG MG 10 MG Baclofen Baclofen No Baclofen [place] 3-6-9 [place] 3-6-9 No [place] 3-6-9 Centrum Centrum No Centrum Silver - Silver - Silver - Fluzone Fluzone No Fluzone High-Dose High-Dose High-Dose Nabumetone Nabumetone No Nabumetone traMADol traMADol No traMADol HCl HCl HCl Ibuprofen Ibuprofen No Ibuprofen Vit E-Vit Vit E-Vit No Vit E-Vit K-Safflower K-Safflower K-Safflowe Oil Oil r Oil Azelastine Azelastine No 1{puff_ BID Azelastine HCl 137 HCl 137 in_each HCl 137 MCG/SPRAY MCG/SPRAY _nostri MCG/SPRAY l} Estradiol Estradiol No Estradiol 0.1 MG/GM 0.1 MG/GM 0.1 MG/GM tiZANidine tiZANidine No tiZANidine HCl HCl HCl Amoxicillin Amoxicillin No Amoxicilli -Pot -Pot n-Pot Clavulanate Clavulanate Clavulanat e Flonase 50 Flonase 50 No 2{spray QD Flonase 50 MCG/ACT MCG/ACT _in_eac MCG/ACT h_nostr il} Macrobid Macrobid No 1{capsu BID Macrobid 100 MG 100 MG le_with 100 MG _food} Gabapentin Gabapentin No Gabapentin Virtussin Virtussin No Virtussin A/C A/C A/C DULoxetine DULoxetine No DULoxetine HCl HCl HCl Fluticasone Fluticasone No Fluticason Propionate Propionate e Propionate Prevagen 10 Prevagen 10 No 1{table QD Prevagen MG MG t} 10 MG Cetirizine Cetirizine No 1{table Cetirizine HCl 10 MG HCl 10 MG t} HCl 10 MG Montelukast Montelukast No 1{table Montelukas Sodium 10 Sodium 10 t} t Sodium MG MG 10 MG Baclofen Baclofen No Baclofen [place] 3-6-9 [place] 3-6-9 No [place] 3-6-9 Centrum Centrum No Centrum Silver - Silver - Silver - Fluzone Fluzone No Fluzone High-Dose High-Dose High-Dose Nabumetone Nabumetone No Nabumetone traMADol traMADol No traMADol HCl HCl HCl Ibuprofen Ibuprofen No Ibuprofen Vit E-Vit Vit E-Vit No Vit E-Vit K-Safflower K-Safflower K-Safflowe Oil Oil r Oil Centrum Centrum No Centrum Silver - Silver - Silver - [place] 3-6-9 [place] 3-6-9 No [place] 3-6-9 Montelukast Montelukast No 1{table Montelukas Sodium 10 Sodium 10 t} t Sodium MG MG 10 MG Azelastine Azelastine No 1{puff_ BID Azelastine HCl 137 HCl 137 in_each HCl 137 MCG/SPRAY MCG/SPRAY _nostri MCG/SPRAY l} Amoxicillin Amoxicillin No Amoxicilli -Pot -Pot n-Pot Clavulanate Clavulanate Clavulanat e Ibuprofen Ibuprofen No Ibuprofen Flonase 50 Flonase 50 No 2{spray QD Flonase 50 MCG/ACT MCG/ACT _in_eac MCG/ACT h_nostr il} Fluticasone Fluticasone No Fluticason Propionate Propionate e Propionate Virtussin Virtussin No Virtussin A/C A/C A/C DULoxetine DULoxetine No DULoxetine HCl HCl HCl Macrobid Macrobid No 1{capsu BID Macrobid 100 MG 100 MG le_with 100 MG _food} Nabumetone Nabumetone No Nabumetone traMADol traMADol No traMADol HCl HCl HCl Prevagen 10 Prevagen 10 No 1{table QD Prevagen MG MG t} 10 MG tiZANidine tiZANidine No tiZANidine HCl HCl HCl Baclofen Baclofen No Baclofen Cetirizine Cetirizine No 1{table Cetirizine HCl 10 MG HCl 10 MG t} HCl 10 MG Estradiol Estradiol No Estradiol 0.1 MG/GM 0.1 MG/GM 0.1 MG/GM Gabapentin Gabapentin No Gabapentin Vit E-Vit Vit E-Vit No Vit E-Vit K-Safflower K-Safflower K-Safflowe Oil Oil r Oil Fluzone Fluzone No Fluzone High-Dose High-Dose High-Dose Centrum Centrum No Centrum Silver - Silver - Silver - [place] 3-6-9 [place] 3-6-9 No [place] 3-6-9 Montelukast Montelukast No 1{table Montelukas Sodium 10 Sodium 10 t} t Sodium MG MG 10 MG Azelastine Azelastine No 1{puff_ BID Azelastine HCl 137 HCl 137 in_each HCl 137 MCG/SPRAY MCG/SPRAY _nostri MCG/SPRAY l} Amoxicillin Amoxicillin No Amoxicilli -Pot -Pot n-Pot Clavulanate Clavulanate Clavulanat e Ibuprofen Ibuprofen No Ibuprofen Flonase 50 Flonase 50 No 2{spray QD Flonase 50 MCG/ACT MCG/ACT _in_eac MCG/ACT h_nostr il} Fluticasone Fluticasone No Fluticason Propionate Propionate e Propionate Virtussin Virtussin No Virtussin A/C A/C A/C DULoxetine DULoxetine No DULoxetine HCl HCl HCl Macrobid Macrobid No 1{capsu BID Macrobid 100 MG 100 MG le_with 100 MG _food} Nabumetone Nabumetone No Nabumetone traMADol traMADol No traMADol HCl HCl HCl Prevagen 10 Prevagen 10 No 1{table QD Prevagen MG MG t} 10 MG tiZANidine tiZANidine No tiZANidine HCl HCl HCl Baclofen Baclofen No Baclofen Cetirizine Cetirizine No 1{table Cetirizine HCl 10 MG HCl 10 MG t} HCl 10 MG Estradiol Estradiol No Estradiol 0.1 MG/GM 0.1 MG/GM 0.1 MG/GM Gabapentin Gabapentin No Gabapentin Vit E-Vit Vit E-Vit No Vit E-Vit K-Safflower K-Safflower K-Safflowe Oil Oil r Oil Fluzone Fluzone No Fluzone High-Dose High-Dose High-Dose Montelukast Montelukast No 1{table Montelukas Sodium 10 Sodium 10 t} t Sodium MG MG 10 MG Centrum Centrum No Centrum Silver - Silver - Silver - Azelastine Azelastine No 1{puff_ BID Azelastine HCl 137 HCl 137 in_each HCl 137 MCG/SPRAY MCG/SPRAY _nostri MCG/SPRAY l} Baclofen Baclofen No Baclofen Estradiol Estradiol No Estradiol 0.1 MG/GM 0.1 MG/GM 0.1 MG/GM tiZANidine tiZANidine No tiZANidine HCl HCl HCl Nabumetone Nabumetone No Nabumetone Prevagen 10 Prevagen 10 No 1{table QD Prevagen MG MG t} 10 MG Macrobid Macrobid No 1{capsu BID Macrobid 100 MG 100 MG le_with 100 MG _food} traMADol traMADol No traMADol HCl HCl HCl Flonase 50 Flonase 50 No 2{spray QD Flonase 50 MCG/ACT MCG/ACT _in_eac MCG/ACT h_nostr il} Fluzone Fluzone No Fluzone High-Dose High-Dose High-Dose Virtussin Virtussin No Virtussin A/C A/C A/C Amoxicillin Amoxicillin No Amoxicilli -Pot -Pot n-Pot Clavulanate Clavulanate Clavulanat e [place] 3-6-9 [place] 3-6-9 No [place] 3-6-9 Ibuprofen Ibuprofen No Ibuprofen Flonase 50 Flonase 50 No 2{spray QD Flonase 50 MCG/ACT MCG/ACT _in_eac MCG/ACT h_nostr il} Vit E-Vit Vit E-Vit No Vit E-Vit K-Safflower K-Safflower K-Safflowe Oil Oil r Oil DULoxetine DULoxetine No DULoxetine HCl HCl HCl Gabapentin Gabapentin No Gabapentin Fluticasone Fluticasone No Fluticason Propionate Propionate e Propionate Cetirizine Cetirizine No 1{table Cetirizine HCl 10 MG HCl 10 MG t} HCl 10 MG Amoxicillin Amoxicillin No Amoxicilli -Pot -Pot n-Pot Clavulanate Clavulanate Clavulanat e Nabumetone Nabumetone No Nabumetone Virtussin Virtussin No Virtussin A/C A/C A/C Fluzone Fluzone No Fluzone High-Dose High-Dose High-Dose Vit E-Vit Vit E-Vit No Vit E-Vit K-Safflower K-Safflower K-Safflowe Oil Oil r Oil DULoxetine DULoxetine No DULoxetine HCl HCl HCl [place] 3-6-9 [place] 3-6-9 No [place] 3-6-9 Flonase 50 Flonase 50 No 2{spray QD Flonase 50 MCG/ACT MCG/ACT _in_eac MCG/ACT h_nostr il} Fluticasone Fluticasone No Fluticason Propionate Propionate e Propionate Flonase 50 Flonase 50 No 2{spray QD Flonase 50 MCG/ACT MCG/ACT _in_eac MCG/ACT h_nostr il} Estradiol Estradiol No Estradiol 0.1 MG/GM 0.1 MG/GM 0.1 MG/GM tiZANidine tiZANidine No tiZANidine HCl HCl HCl Azelastine Azelastine No 1{puff_ BID Azelastine HCl 137 HCl 137 in_each HCl 137 MCG/SPRAY MCG/SPRAY _nostri MCG/SPRAY l} Prevagen 10 Prevagen 10 No 1{table QD Prevagen MG MG t} 10 MG Baclofen Baclofen No Baclofen Montelukast Montelukast No 1{table Montelukas Sodium 10 Sodium 10 t} t Sodium MG MG 10 MG traMADol traMADol No traMADol HCl HCl HCl Macrobid Macrobid No 1{capsu BID Macrobid 100 MG 100 MG le_with 100 MG _food} Centrum Centrum No Centrum Silver - Silver - Silver - Cetirizine Cetirizine No 1{table Cetirizine HCl 10 MG HCl 10 MG t} HCl 10 MG Gabapentin Gabapentin No Gabapentin Ibuprofen Ibuprofen No Ibuprofen Azelastine Azelastine No 1{puff_ BID Azelastine HCl 137 HCl 137 in_each HCl 137 MCG/SPRAY MCG/SPRAY _nostri MCG/SPRAY l} Macrobid Macrobid No 1{capsu BID Macrobid 100 MG 100 MG le_with 100 MG _food} Cetirizine Cetirizine No 1{table Cetirizine HCl 10 MG HCl 10 MG t} HCl 10 MG Gabapentin Gabapentin No Gabapentin Fluticasone Fluticasone No Fluticason Propionate Propionate e Propionate Amoxicillin Amoxicillin No Amoxicilli -Pot -Pot n-Pot Clavulanate Clavulanate Clavulanat e Baclofen Baclofen No Baclofen Fluzone Fluzone No Fluzone High-Dose High-Dose High-Dose Vit E-Vit Vit E-Vit No Vit E-Vit K-Safflower K-Safflower K-Safflowe Oil Oil r Oil tiZANidine tiZANidine No tiZANidine HCl HCl HCl Nabumetone Nabumetone No Nabumetone traMADol traMADol No traMADol HCl HCl HCl [place] 3-6-9 [place] 3-6-9 No [place] 3-6-9 Montelukast Montelukast No 1{table Montelukas Sodium 10 Sodium 10 t} t Sodium MG MG 10 MG Centrum Centrum No Centrum Silver - Silver - Silver - DULoxetine DULoxetine No DULoxetine HCl HCl HCl Estradiol Estradiol No Estradiol 0.1 MG/GM 0.1 MG/GM 0.1 MG/GM Flonase 50 Flonase 50 No 2{spray QD Flonase 50 MCG/ACT MCG/ACT _in_eac MCG/ACT h_nostr il} Prevagen 10 Prevagen 10 No 1{table QD Prevagen MG MG t} 10 MG Flonase 50 Flonase 50 No 2{spray QD Flonase 50 MCG/ACT MCG/ACT _in_eac MCG/ACT h_nostr il} Virtussin Virtussin No Virtussin A/C A/C A/C Ibuprofen Ibuprofen No Ibuprofen Cetirizine Cetirizine No 1{table Cetirizine HCl 10 MG HCl 10 MG t} HCl 10 MG Macrobid Macrobid No 1{capsu BID Macrobid 100 MG 100 MG le_with 100 MG _food} Ibuprofen Ibuprofen No Ibuprofen Gabapentin Gabapentin No Gabapentin Estradiol Estradiol No Estradiol 0.1 MG/GM 0.1 MG/GM 0.1 MG/GM Azelastine Azelastine No 1{puff_ BID Azelastine HCl 137 HCl 137 in_each HCl 137 MCG/SPRAY MCG/SPRAY _nostri MCG/SPRAY l} Amoxicillin Amoxicillin No Amoxicilli -Pot -Pot n-Pot Clavulanate Clavulanate Clavulanat e Fluzone Fluzone No Fluzone High-Dose High-Dose High-Dose Vit E-Vit Vit E-Vit No Vit E-Vit K-Safflower K-Safflower K-Safflowe Oil Oil r Oil tiZANidine tiZANidine No tiZANidine HCl HCl HCl Nabumetone Nabumetone No Nabumetone [place] 3-6-9 [place] 3-6-9 No [place] 3-6-9 Fluticasone Fluticasone No Fluticason Propionate Propionate e Propionate Baclofen Baclofen No Baclofen Flonase 50 Flonase 50 No 2{spray QD Flonase 50 MCG/ACT MCG/ACT _in_eac MCG/ACT h_nostr il} DULoxetine DULoxetine No DULoxetine HCl HCl HCl Virtussin Virtussin No Virtussin A/C A/C A/C traMADol traMADol No traMADol HCl HCl HCl Prevagen 10 Prevagen 10 No 1{table QD Prevagen MG MG t} 10 MG Flonase 50 Flonase 50 No 2{spray QD Flonase 50 MCG/ACT MCG/ACT _in_eac MCG/ACT h_nostr il} Montelukast Montelukast No 1{table Montelukas Sodium 10 Sodium 10 t} t Sodium MG MG 10 MG Centrum Centrum No Centrum Silver - Silver - Silver - Centrum Centrum No Centrum Silver - Silver - Silver - Cetirizine Cetirizine No 1{table Cetirizine HCl 10 MG HCl 10 MG t} HCl 10 MG [place] 3-6-9 [place] 3-6-9 No [place] 3-6-9 Vit E-Vit Vit E-Vit No Vit E-Vit K-Safflower K-Safflower K-Safflowe Oil Oil r Oil [place] 3-6-9 [place] 3-6-9 No [place] 3-6-9 Centrum Centrum No Centrum Silver - Silver - Silver - Vit E-Vit Vit E-Vit No Vit E-Vit K-Safflower K-Safflower K-Safflowe Oil Oil r Oil Cetirizine Cetirizine No 1{table Cetirizine HCl 10 MG HCl 10 MG t} HCl 10 MG [place] 3-6-9 [place] 3-6-9 No [place] 3-6-9 Centrum Centrum No Centrum Silver - Silver - Silver - Vit E-Vit Vit E-Vit No Vit E-Vit K-Safflower K-Safflower K-Safflowe Oil Oil r Oil Cetirizine Cetirizine No 1{table Cetirizine HCl 10 MG HCl 10 MG t} HCl 10 MG [place] 3-6-9 [place] 3-6-9 No [place] 3-6-9 Centrum Centrum No Centrum Silver - Silver - Silver - Vit E-Vit Vit E-Vit No Vit E-Vit K-Safflower K-Safflower K-Safflowe Oil Oil r Oil Cetirizine Cetirizine No 1{table Cetirizine HCl 10 MG HCl 10 MG t} HCl 10 MG [place] 3-6-9 [place] 3-6-9 No [place] 3-6-9 Centrum Centrum No Centrum Silver - Silver - Silver - Vit E-Vit Vit E-Vit No Vit E-Vit K-Safflower K-Safflower K-Safflowe Oil Oil r Oil Cetirizine Cetirizine No 1{table Cetirizine HCl 10 MG HCl 10 MG t} HCl 10 MG [place] 3-6-9 [place] 3-6-9 No [place] 3-6-9 Centrum Centrum No Centrum Silver - Silver - Silver - Vit E-Vit Vit E-Vit No Vit E-Vit K-Safflower K-Safflower K-Safflowe Oil Oil r Oil Cetirizine Cetirizine No 1{table Cetirizine HCl 10 MG HCl 10 MG t} HCl 10 MG Immunizations Ordered Immunization Filled Immunization Date Status Commen ts Source Name Name FluAD FluAD 2019-05-09 [facility] - [facility] FluAD FluAD 2019-05-09 [facility] - [facility] FluAD FluAD 2019-05-09 [facility] 14[facility]38:00 - [facility] FluAD FluAD 2019-05-09 [facility] 14:38:00 - [facility] FluAD FluAD 2019-05-09 [facility] 14:38:00 - [facility] FluAD FluAD 2019-05-09 [facility]pleted [facility] 14:38:00 - [facility] FluAD FluAD 2019-05-09 Completed [facility] 14:38:00 - [facility] FluAD FluAD 2019-05-09 [facility]pleted [facility] 14[facility]38:00 - [facility] FluAD FluAD 2019-05-09 Completed [facility] 14:38:00 - [facility] FluAD FluAD 2019-05-09 [facility]pleted [facility] 14:38:00 - [facility] FluAD FluAD 2019-05-09 [facility]pleted [facility] 14:38:00 - [facility] FluAD FluAD 2019-05-09 Completed [facility] 14:38:00 - [facility] FluAD FluAD 2019-05-09 Completed [facility] 14:38:00 - [facility] FluAD FluAD 2019-05-09 Completed [facility] 14:38:00 - [facility] FluAD FluAD 2019-05-09 Completed [facility] 14:38:00 - [facility] FluAD FluAD 2019-05-09 Completed [facility] 14:38:00 - [facility] Zostavax Zostavax 2014-10-09 Completed [facility] 14:38:00 - [facility] Zostavax Zostavax 2014-10-09 Completed [facility] 14:38:00 - [facility] Zostavax Zostavax 2014-10-09 Completed [facility] 14:38:00 - [facility] Zostavax Zostavax 2014-10-09 Completed [facility] 14:38:00 - [facility] Zostavax Zostavax 2014-10-09 Completed [facility] 14:38:00 - [facility] Zostavax Zostavax 2014-10-09 Completed [facility] 14:38:00 - [facility] Zostavax Zostavax 2014-10-09 Completed [facility] 14:38:00 - [facility] Zostavax Zostavax 2014-10-09 Completed [facility] 14:38:00 - [facility] Zostavax Zostavax 2014-10-09 Completed [facility] 14[facility]38:00 - [facility] Zostavax Zostavax 2014-10-09 Completed [facility] 14:38:00 - [facility] Zostavax Zostavax 2014-10-09 Completed [facility] 14:38:00 - [facility] Zostavax Zostavax 2014-10-09 Completed [facility] 14:38:00 - [facility] Zostavax Zostavax 2014-10-09 Completed [facility] 14:38:00 - [facility] Zostavax Zostavax 2014-10-09 Completed [facility] 14:38:00 - [facility] Zostavax Zostavax 2014-10-09 Completed [facility] 14:38:00 - [facility] Zostavax Zostavax 2014-10-09 Completed [facility] 14:38:00 - [facility] Vital Signs Vital Name Observation Time Observation Value Comments Source height 2022-04-20 10:40:00 60 [in_i] [facility] weight 2022-04-20 10:40:00 106.4 [lb_av] [facility] temperature 2022-04-20 10:40:00 97.5 [degF] [facility] bmi 2022-04-20 10:40:00 20.78 kg/m2 [facility] oximetry 2022-04-20 10:40:00 99 % [facility] respiratory rate 2022-04-20 10:40:00 16 /min [facility] blood pressure 2022-04-20 10:40:00 124 mm[Hg] [facility] - systolic [facility] blood pressure 2022-04-20 10:40:00 60 mm[Hg] [facility] - diastolic [facility] height 2022-03-16 13:00:00 60 [in_i] [facility] weight 2022-03-16 13:00:00 104.4 [lb_av] [facility] temperature 2022-03-16 13:00:00 98.4 [degF] [facility] bmi 2022-03-16 13:00:00 20.39 kg/m2 [facility] blood pressure 2022-03-16 13:00:00 118 mm[Hg] [facility] - systolic [facility] blood pressure 2022-03-16 13:00:00 76 mm[Hg] [facility] - diastolic [facility] height 2022-01-05 13:20:00 60 [in_i] [facility] weight 2022-01-05 13:20:00 106 [lb_av] [facility] temperature 2022-01-05 13:20:00 97.9 [degF] [facility] bmi 2022-01-05 13:20:00 20.7 kg/m2 [facility] oximetry 2022-01-05 13:20:00 96 % [facility] respiratory rate 2022-01-05 13:20:00 18 /min [facility] blood pressure 2022-01-05 13:20:00 123 mm[Hg] [facility] - systolic [facility] blood pressure 2022-01-05 13:20:00 66 mm[Hg] [facility] - diastolic [facility] height 2021-11-16 10:40:00 60 [in_i] [facility] weight 2021-11-16 10:40:00 104.7 [lb_av] [facility] - [facility] temperature 2021-11-16 10:40:00 97.2 [degF] [facility] bmi 2021-11-16 10:40:00 20.45 kg/m2 [facility] oximetry 2021-11-16 10:40:00 100 % [facility] respiratory rate 2021-11-16 10:40:00 16 /min [facility] on [facility] blood pressure 2021-11-16 10:40:00 121 mm[Hg] [facility] - systolic [facility] blood pressure 2021-11-16 10:40:00 60 mm[Hg] [facility] - diastolic [facility] height 2021-09-29 13:00:00 60 [in_i] [facility] weight 2021-09-29 13:00:00 108 [lb_av] [facility] temperature 2021-09-29 13:00:00 98.2 [degF] [facility] bmi 2021-09-29 13:00:00 21.09 kg/m2 [facility] blood pressure 2021-09-29 13:00:00 118 mm[Hg] [facility] - systolic [facility] blood pressure 2021-09-29 13:00:00 68 mm[Hg] [facility] - diastolic [facility] height 2021-07-06 13:40:00 60 [in_i] [facility] weight 2021-07-06 13:40:00 109.2 [lb_av] [facility] temperature 2021-07-06 13:40:00 97.7 [degF] [facility] bmi 2021-07-06 13:40:00 21.32 kg/m2 [facility] oximetry 2021-07-06 13:40:00 98 % [facility] respiratory rate 2021-07-06 13:40:00 16 /min [facility] blood pressure 2021-07-06 13:40:00 139 mm[Hg] [facility] - systolic [facility] blood pressure 2021-07-06 13:40:00 61 mm[Hg] [facility] - diastolic [facility] Procedures This patient has no known procedures. Encounters Start End Encounter Admission Attending Care Care Encounter Source Date/Time Date/Time Type Type Clinicians Facility Department ID 2022-09-16 Outpatient BUSTOS, Na STLMLC STLMLC [id number] [facility] 12[facility]00:01 [facility] 2022-03-17 Outpatient Bustos, Na STLMLC STLMLC [id number] 2 [facility] 11:03:00 [facility] 2021-12-31 Outpatient Bustos, Na STLMLC STLMLC [id number] 2 [facility] 11:18:00 [facility] 2021-12-09 Outpatient Bustos, Na STLMLC STLMLC [id number] 2 [facility] 09:06:02 [facility] 2021-11-16 Outpatient Bustos, Na STLMLC STLMLC [id number] 2 [facility] 09:57:02 [facility] 2021-09-10 Outpatient Bustos, Na STLMLC STLMLC [id number] 2 [facility] 13:01:00 [facility] 2021-09-09 Outpatient Bustos, Na STLMLC STLMLC [id number] 2 [facility] 14:46:01 [facility] 2021-09-03 Outpatient [id number] ENCPL ORJ [id number] [facility] 09:13:15 [facility] 2021-09-03 Outpatient 3 [id number] ENC[facility] REF [id number] [facility] 09:11:46 [facility]13 [facility] 2021-09-03 Outpatient 3 [id number] ENCPL REF [id number] [facility] 09:11:29 0212 [facility] 2021-09-03 Outpatient 3 [id number] ENCPL MIKALA [facility] 09:08:29 0205 [facility] 2021-09-02 Outpatient Bustos, Na STLMLC STLMLC [id number] 2 [facility] 13:39:43 [id number] [facility] 2021-09-02 Outpatient Bustos, Na STLMLC STLMLC [id number] 2 [facility] 13:09:08 [id number] [facility] 2021-09-02 Outpatient Bustos, Na STLMLC STLMLC [id number] 2 [facility] 13:07:27 [id number] [facility] 2021-09-02 Outpatient Bustos, Na STLMLC STLMLC [id number] 2 [facility] 12:35:33 [id number] [facility] 2021-09-02 Outpatient Bustos, Na STLMLC STLMLC [id number] 2 [facility] 12:31:31 74564 [facility] 2021-09-02 Outpatient Bustos, Na STLMLC STLMLC [id number] 2 [facility] 12:29:55 [id number] [facility] 2021-09-02 Outpatient Bustos, Na STLMLC STLMLC [id number] 2 [facility] 12:21:21 [id number] [facility] 2021-09-02 Outpatient Bustos, Na STLMLC STLMLC [id number] 2 [facility] 12:20:41 [id number] [facility] 2021-09-02 Outpatient Bustos, Na STLMLC STLMLC [id number] 2 [facility] 12:13:13 [id number] [facility] 2021-09-02 Outpatient Bustos, Na STLMLC STLMLC [id number] 2 [facility] 12:12:39 [id number] [facility] 2021-09-02 Outpatient Bustos, Na STLMLC STLMLC [id number] 2 [facility] 12:07:04 [id number] [facility] 2021-09-02 Outpatient Bustos, Na STLMLC STLMLC [id number] 2 [facility] 12:06:17 [id number] [facility] 2021-09-02 Outpatient Bustos, Na STLMLC STLMLC [id number] 2 [facility] 12:01:09 [id number] [facility] 2021-09-02 Outpatient Bustos, Na STLMLC STLMLC [id number] 2 [facility] 11:44:39 81146 [facility] 2021-09-02 Outpatient Bustos, Na STLMLC STLMLC [id number] 2 [facility] 11:34:54 [id number] [facility] 2021-09-02 Outpatient Bustos, Na STLMLC STLMLC [id number] 2 [facility] 11:30:52 [id number] [facility] 2021-09-02 Outpatient Anya Hernandez STLMLC STLMLC [id number] [facility] 11:27:32 [id number] [facility] 2017-01-20 Inpatient Jay ADELIA, [facility] [id number] [facility] 05:00:00 [facility] 2022-04-27 2022-04-27 (TEL) STLMLC STLMLC [id number] [facility] 00:00:00 00:00:00 [facility] 2022-04-22 2022-04-22 (TEL) STLMLC STLMLC [id number] [facility] 00:00:00 00:00:00 [facility] 2022-04-20 2022-04-20 OFFICE STLMLC STLMLC [id number] [facility] 00:00:00 00:00:00 VISIT EST [facility] PT LEVEL 3 - [facility] 2022-04-19 2022-04-19 (TEL) STLMLC STLMLC [id number] [facility] 00:00:00 00:00:00 [facility] 2022-03-16 2022-03-16 OFFICE STLMLC STLMLC [id number] [facility] 00:00:00 00:00:00 [facility] ESTAB PT - [facility] LEVEL 4 [facility] 2022-03-04 2022-03-04 Outpatient JYOTI_VANIA CALLAHAN [id number] [place] 00:[facility] 00:[facility]:[id number] [facility] 2022-01-05 2022-01-05 OFFICE STLMLC STLMLC [id number] [facility] 00:00:00 00:00:00 VISIT EST [facility] PT LEVEL 3 [facility] 2021-12-16 2021-12-16 (TEL) STLMLC STLMLC [id number] [facility] 00:00:00 00:00:00 [facility] 2021-12-16 2021-12-16 OL DIG E/M STLMLC STLMLC [id number] [facility] 00:00:00 00:00:00 [facility] [place] [place] 06-27 Spir it MIN [facility] 2021-12-14 2021-12-14 (TEL) STLMLC STLMLC [id number] [facility] 00:00:00 00:00:00 [facility] 2021-12-08 2021-12-08 OL DIG E/M STLMLC STLMLC [id number] [facility] 00:00:00 00:00:00 [facility] [place] [place] 06-27 Spir it MIN [facility] 2021-11-23 2021-11-23 (TEL) STLMLC STLMLC [id number] [facility] 00:00:00 00:00:00 [facility] 2021-11-16 2021-11-16 OFFICE STLMLC STLMLC [id number] [facility] 00:00:00 00:00:00 VISIT [facility] PT LEVEL 3 [facility] 2021-11-12 2021-11-12 (TEL) STLMLC STLMLC [id number] [facility] 00:00:00 00:00:00 [facility] 2021-09-29 2021-09-29 OFFICE STLMLC STLMLC [id number] [facility] 00:00:00 00:00:00 [facility] ESTAB PT - [facility]I LEVEL 4 [facility] 2021-07-06 2021-07-06 OFFICE STLMLC STLMLC [id number] [facility] 00:00:00 00:00:00 VISIT [facility] PT LEVEL 3 [facility] 2021-04-22 2021-04-22 Outpatient STLMLC STLMLC [id number] [facility] 00:00:00 00:00:00 [facility] 2021-04-17 2021-04-17 Outpatient STLMLC STLMLC [id number] [facility] 00:00:00 00:00:00 [facility] 2021-04-02 2021-04-02 Outpatient STLMLC STLMLC [id number] [facility] 00:00:00 00:00:00 [facility] 2021-03-16 2021-03-16 Outpatient STLMLC STLMLC [id number] [facility] 00:00:00 00:00:00 [facility] 2021-01-15 2021-01-15 Outpatient STLMLC STLMLC [id number] [facility] 00:00:00 00:00:00 [facility] 2021-01-07 2021-01-07 Outpatient STLMLC STLMLC [id number] [facility] 00:00:00 00:00:00 [facility] 2021-01-07 2021-01-07 Outpatient STLMLC STLMLC [id number] [facility] 00:00:00 00:00:00 [facility] 2021-01-06 2021-01-06 Outpatient STLMLC STLMLC [id number] [facility] 00:00:00 00:00:00 [facility] 2020-12-30 2020-12-30 Outpatient STLMLC STLMLC [id number] [facility] 00:00:00 00:00:00 [facility] 2020-10-05 2020-10-05 Outpatient STLMLC STLMLC [id number] [facility] 00:00:00 00:00:00 [facility] 2020-09-29 2020-09-29 Outpatient STLMLC STLMLC [id number] [facility] 00:00:00 00:00:00 [facility] 2020-09-29 2020-09-29 Outpatient STLMLC STLMLC [id number] [facility] 00:00:00 00:00:00 [facility] 2020-09-15 2020-09-15 Outpatient STLMLC STLMLC [id number] [facility] 00:00:00 00:00:00 [facility] 2020-09-08 2020-09-08 Outpatient STLMLC STLMLC [id number] [facility] 00:00:00 00:00:00 [facility] 2020-08-22 2020-08-22 Outpatient STLMLC STLMLC [id number] [facility] 00:00:00 00:00:00 [facility] 2020-07-21 2020-07-21 Outpatient STLMLC STLMLC [id number] [facility] 00:00:00 00:00:00 [facility] 2020-07-11 2020-07-11 Outpatient STLMLC STLMLC [id number] [facility] 00:00:00 00:00:00 [facility] 2020-06-27 2020-06-27 Outpatient STLMLC STLMLC [id number] [facility] 00:00:00 00:00:00 [facility] 2020-06-20 2020-06-20 Outpatient STLMLC STLMLC [id number] [facility] 00:00:00 00:00:00 [facility] 2020-06-11 2020-06-11 Outpatient STLMLC STLMLC [id number] [facility] 00:00:00 00:00:00 [facility] 2020-04-15 2020-04-15 [id number] [facility] 10:00:00 10:00:00 [facility] 2020-03-18 2020-03-18 [facility] [id number] [facility] 10:20:00 10:20:[address] [facility] [facility] [address] [facility] 2020-03-12 2020-03-12 [facility] [id number] [facility] 15:00:00 15:00:[address] [facility] [facility] 2020-03-11 2020-03-11 [facility] [id number] [facility] 15:52:00 15:52:[address] [facility] [facility] 2020-03-11 2020-03-11 [facility] [id number] [facility] 14:31:00 14:31:[address] [facility] [facility] 2020-03-11 2020-03-11 Outpatient Aishwarya BARTLETT [facility] [id number] 10:00:00 10:00:00 SWATHI acuña [facility] 2020-02-26 2020-02-26 [facility] [id number] [facility] 08:46:00 08:46:[address] [facility] [facility] 2020-02-20 2020-02-20 [facility] [id number] [facility] 15:31:00 15:31:[address] [facility] [facility] 2020-02-18 2020-02-18 [facility] [id number] [facility] 09:00:00 09:00:[address] [facility] [address] [facility] 2020-01-25 2020-01-25 [id number] [facility] 14:30:00 14:30:[address] [facility] [address] [facility] Results This patient has no known results.
--- NOTE | 2022-10-25 17:16 | RAD REPORT ---
EXAM DESCRIPTION: USExtrem Venous W Compress Bil10/25/2022 5:02 pm CLINICAL HISTORY: Leg pain COMPARISON: none FINDINGS: The common femoral, superficial femoral, greater saphenous, popliteal and posterior tibial veins bilaterally are compressible and demonstrate augmentation. Doppler demonstrates good flow. Grayscale, color and spectral analysis performed on all vessels IMPRESSION: No evidence of deep venous thrombosis involving either lower extremity.
[2022-10-25 17:31] LABS: Absolute Lymphocytes (CBC) 1.5 K/uL (0.7-4.9); Hematocrit 35.9 % (36.0-45.0); Lymphocytes % 21.9 % (15.3-44.8); MCV 88.6 fL (80-100); MPV 7.7 fL (7.6-11.3); RBC Red Blood Cell Count 4.06 M/uL (3.86-4.86)
--- NOTE | 2022-10-25 17:44 | RAD REPORT ---
EXAM DESCRIPTION: US - Lower Extremity Arterial Bilat - 10/25/2022 5:02 pm CLINICAL HISTORY: Leg pain COMPARISON: None FINDINGS: Right common femoral, superficial femoral and popliteal arteries demonstrate biphasic waveforms The right posterior tibial and dorsalis pedis arteries demonstrate biphasic waveforms The left common femoral, superficial femoral and popliteal arteries demonstrate biphasic waveforms The left posterior tibial and dorsalis pedis arteries demonstrate biphasic waveforms Grayscale, color and spectral analysis performed on all vessels IMPRESSION: Mild bilateral lower extremity arterial disease
[2022-10-25 17:45] LABS: Magnesium 2.3 mg/dL (1.6-2.4); Potassium 3.6 mEq/L (3.5-5.1)
--- NOTE | 2022-10-25 19:36 | ER ---
Nurse's Notes [facility] Name: Sarah Chapman Age: 77 yrs Sex: Female : 1945 Arrival Date: 10/25/2022 Time: 15:48 Bed 4 Private MD: Diagnosis: Pain in right leg;Pain in left leg Presentation: 10/25 16:12 Chief complaint: Patient states: "my left leg has been cramping for a while and now the aa5 right leg started hurting last night". Pt's family member states "Dr. Sommer can't see her until the end of the month". 16:12 Method Of Arrival: Wheelchair aa5 16:12 Coronavirus screen: At this time, the client does not indicate any symptoms associated aa5 with coronavirus-19. Ebola Screen: Patient denies travel to an Ebola-affected area in the 21 days before illness onset. Initial Sepsis Screen: Does the patient meet any 2 criteria? No. Patient's initial sepsis screen is negative. Does the patient have a suspected source of infection? No. Patient's initial sepsis screen is negative. Risk Assessment: Do you want to hurt yourself or someone else? Patient reports no desire to harm self or others. Onset of symptoms was October 2022. 16:12 Acuity: LANCE 3 aa5 Triage Assessment: 20:02 General: Appears uncomfortable, Behavior is calm, cooperative. Pain:. ll3 Historical: - Allergies: 16:16 No Known Allergies; aa5 - PMHx: 16:16 Hypercholesterolemia; aa5 - PSHx: 16:16 R knee; aa5 - Immunization history:: Adult Immunizations unknown. - Social history:: Smoking status: Patient denies any tobacco usage or history of. Screenin:01 [facility] ED Fall Risk Assessment (Adult) History of falling in the last 3 months, ll3 including since admission No falls in past 3 months (0 pts) Confusion or Disorientation No (0 pts) Intoxicated or Sedated No (0 pts) Impaired Gait No (0 pts) Mobility Assist Device Used No (0 pt) Altered Elimination No (0 pt) Score/Fall Risk Level 0 - 2 = Low Risk Oriented to surroundings, Maintained a safe environment, Educated pt \\T\\ family on fall prevention, incl call for assistance when getting out of bed. Abuse screen: Denies threats or abuse. Denies injuries from another. Nutritional screening: No deficits noted. Tuberculosis screening: No symptoms or risk factors identified. Vital Signs: 16:12 BP 125 / 72; Pulse 83; Resp 16 S; Temp 98(TE); Pulse Ox 100% on R/A; Weight 45.81 kg aa5 (R); Height 4 ft. 10 in. (R); 20:10 BP 142 / 72; Pulse 80; Resp 17; Pulse Ox 100% on R/A; ll3 16:12 Body Mass Index 21.11 (45.81 kg, 147.32 cm) aa5 ED Course: 15:48 Patient arrived in ED. rg4 15:52 Srinivas Perez PA is PHCP. cp 15:52 Srinivas Bowen MD is Attending Physician. cp 16:12 Arm band placed on. aa5 16:16 Triage completed. aa5 17:04 US LE Arterial Bilateral In Process Unspecified. EDMS 17:04 US Extremity Venous W Compression Carlitos In Process Unspecified. EDMS 20:02 No provider procedures requiring assistance completed. IV discontinued, intact, ll3 bleeding controlled, No redness/swelling at site. Pressure dressing applied. 20:03 Patient has correct armband on for positive identification. Bed in low position. Call ll3 light in reach. Side rails up X 1. Administered Medications: 20:01 Drug: Ketorolac IVP 15 mg Route: IVP; Site: left antecubital; ll3 Medication: 20:02 VIS not applicable for this client. ll3 Outcome: 19:36 Discharge ordered by MD. cp 20:02 Discharged to home via wheelchair, with family. ll3 20:02 Condition: stable 20:02 Discharge instructions given to patient, family, Instructed on discharge instructions, follow up and referral plans. medication usage, Demonstrated understanding of instructions, follow-up care, medications, Prescriptions given X 1. 20:10 Patient left the ED. ll3 Signatures: Dispatcher [employer] EDMS Sydnee Perez RN RN aa5 Srinivas Perez PA PA cp Garcia, Rubi rg4 Lyudmila Ontiveros RN RN ll3 Corrections: (The following items were deleted from the chart) 20:02 20:02 Pain: ll3 ll3
--- NOTE | 2022-10-25 19:36 | EDPHYS ---
Physician Documentation [facility] Name: Sarah Chapman Age: 77 yrs Sex: Female : 1945 Arrival Date: 10/25/2022 Time: 15:48 Bed 4 Private MD: ED Physician Srinivas Bowen HPI: 10/25 16:25 This 77 yrs old Female presents to ER via Wheelchair with complaints of Leg cp Pain. 16:25 The patient presents with pain, that is acute. The complaints affect the right leg. cp Onset: The symptoms/episode began/occurred last night. 16:25 Associated signs and symptoms: Pertinent positives: calf tenderness, weakness, cp Pertinent negatives fever, numbness, swelling, warmth. Severity of symptoms: in the emergency department the symptoms are unchanged. Patient reports pain to left leg for awhile. Now having right leg pain that was worse while trying to sleep last night. Pain described as cramping. Patient denies low back pain. Reports pain caused leg weakness. Historical: - Allergies: 16:16 No Known Allergies; aa5 - PMHx: 16:16 Hypercholesterolemia; aa5 - PSHx: 16:16 R knee; aa5 - Immunization history:: Adult Immunizations unknown. - Social history:: Smoking status: Patient denies any tobacco usage or history of. ROS: 16:30 Constitutional: Negative for body aches, chills, fever, poor PO intake. cp 16:30 Cardiovascular: Negative for chest pain, edema, palpitations. cp 16:30 MS/extremity: Positive for pain, of the right leg and left leg. 16:30 Eyes: Negative for injury, pain, redness, and discharge. cp 16:30 ENT: Negative for drainage from ear(s), ear pain, sore throat, difficulty swallowing, cp difficulty handling secretions. 16:30 Respiratory: Negative for cough, shortness of breath, wheezing. 16:30 Abdomen/GI: Negative for abdominal pain, nausea, vomiting, and diarrhea. 16:30 Back: Negative for pain at rest, pain with movement, radiated pain. 16:30 : Negative for urinary symptoms. 16:30 Neuro: Negative for altered mental status, dizziness, headache, numbness, tingling, weakness. 16:30 All other systems are negative. Exam: 16:35 Constitutional: The patient appears in no acute distress, alert, awake, cp non-diaphoretic, non-toxic, well developed, well nourished. 16:35 Head/Face: Normocephalic, atraumatic. cp 16:35 Eyes: Periorbital structures: appear normal, Conjunctiva: normal, no exudate, no injection, Sclera: no appreciated abnormality, Lids and lashes: appear normal, bilaterally. 16:35 ENT: External ear(s): are unremarkable, Nose: is normal, Mouth: Lips: moist, Oral mucosa: moist, Posterior pharynx: is normal, airway is patent, no erythema, no exudate. 16:35 Chest/axilla: Inspection: normal. 16:35 Cardiovascular: Rate: normal, Rhythm: regular. 16:35 Respiratory: the patient does not display signs of respiratory distress, Respirations: normal, no use of accessory muscles, no retractions, labored breathing, is not present, Breath sounds: are clear throughout, no decreased breath sounds, no stridor, no wheezing. 16:35 Abdomen/GI: Exam negative for discomfort, distension, guarding, Inspection: abdomen appears normal. 16:35 Back: pain, is absent, ROM is normal. 16:35 Musculoskeletal/extremity: Extremities: grossly normal except: noted in the right leg cp and left leg: pain, tenderness, There is no evidence of decreased ROM, erythema, swelling, ROM: full active range of motion, in the right leg and left leg, Perfusion: the extremity is pink, the right leg and left leg Sensation intact. Joints: All joints appear normal with full range of motion. 16:35 Skin: cellulitis, is not appreciated, no rash present. 16:35 Neuro: Orientation: is normal, Mentation: is normal, Motor: moves all fours, strength is normal. Vital Signs: 16:12 BP 125 / 72; Pulse 83; Resp 16 S; Temp 98(TE); Pulse Ox 100% on R/A; Weight 45.81 kg aa5 (R); Height 4 ft. 10 in. (R); 20:10 BP 142 / 72; Pulse 80; Resp 17; Pulse Ox 100% on R/A; ll3 16:12 Body Mass Index 21.11 (45.81 kg, 147.32 cm) aa5 MDM: 15:52 Patient medically screened. nando 17:00 Differential diagnosis: rhabdomyolysis, electrolyte abnormality, cellulitis, dvt. cp 19:35 Data reviewed: vital signs, nurses notes, lab test result(s), radiologic studies, plain cp films. 19:35 Consideration of Admission/Observation Escalation of care including cp admission/observation considered. 19:35 Care significantly affected by the following chronic conditions: hyperlipidemia with cp use of statin drug. 19:35 Counseling: I had a detailed discussion with the patient and/or guardian regarding: the cp historical points, exam findings, and any diagnostic results supporting the discharge/admit diagnosis, lab results, radiology results, the need for outpatient follow up, an retail supervisor, to return to the emergency department if symptoms worsen or persist or if there are any questions or concerns that arise at home. Response to treatment: the patient's symptoms have mildly improved after treatment, and as a result, I will discharge patient. 10/25 16:16 Order name: BMP; Complete Time: 17:45 cp 10/25 17:46 Interpretation: Normal except: CO2 33. cp 10/25 16:16 Order name: CBC with Diff; Complete Time: 17:38 cp 10/25 17:38 Interpretation: Normal except: HCT 35.9. cp 10/25 16:16 Order name: Magnesium; Complete Time: 17:45 cp 10/25 17:48 Order name: CK; Complete Time: 18:20 cp 10/25 18:20 Interpretation: CPK 208; Reviewed. cp 10/25 17:48 Order name: LAB Add On cp 10/25 16:16 Order name: US Extremity Venous W Compression Carlitos; Complete Time: 17:38 cp 10/25 17:38 Interpretation: Report reviewed. cp 10/25 16:16 Order name: US LE Arterial Bilateral; Complete Time: 17:46 cp 10/25 17:47 Interpretation: Report reviewed. cp 10/25 16:16 Order name: IV; Complete Time: 17:45 cp Administered Medications: 20:01 Drug: Ketorolac IVP 15 mg Route: IVP; Site: left antecubital; ll3 Disposition Summary: 10/25/22 19:36 Discharge Ordered Location: Home cp Problem: new cp Symptoms: have improved cp Condition: Stable cp Diagnosis - Pain in right leg cp - Pain in left leg cp Followup: cp - With: Private Physician - When: 2 - 3 days - Reason: Recheck today's complaints Discharge Instructions: - Discharge Summary Sheet cp - Musculoskeletal Pain cp Forms: - Medication Reconciliation Form cp - Thank You Letter cp - Antibiotic Education cp - Prescription Opioid Use cp Prescriptions: - Mobic 7.5 mg Oral Tablet - take 1 tablet by ORAL route once daily take with food; 20 tablet; Refills: 0, cp Product Selection Permitted Signatures: Dispatcher [employer] Srinivas Brennan MD MD cha Calderon, Audri, RN RN aa5 Srinivas Perez PA PA cp Loubet, Lynsea, RN RN ll3
[2022-10-25] MEDS ORDERED: KETOROLAC 30 MG/ML INJ ONE (19:53)
[2022-10-26 05:36] VITALS: TEMP 98; O2SAT 100
[2022-10-26 05:37] VITALS: BP 142/72
== END 2022-10-25 20:10 | disposition home or self-care (01) ==
LOC: ER 15:42
DX: M79.605 Pain in left leg (principal); M79.604 Pain in right leg
CPT/HCPCS: 36415; 80048; 82550; 83735; 85025; 93925; 93970

== ENCOUNTER 2024-03-06 07:56 | Emergency (ER) | payer OTHER ==
--- OUTSIDE RECORDS SUMMARY | 2024-03-06 08:01 | XMS REPORT | Continuity of Care Document ---
Author Name Unknown Address [address] [place] [address] [facility] thconnect Address [address] [place] [address] Care Team Providers Care Product/Device Technologist Name Role Phone BUSTOSNicki Attending Clinician Unavailable [id number] Attending Clinician Unavailable Anya Hernandez Attending Clinician Unavailable DR MERCED DELVALLE Attending Clinician Unavailable RYAN Attending Clinician Unavailable SWATHI BARTLETT Attending Clinician Unavailable [id number] Admitting Clinician Unavailable DR MERCED DELVALLE Admitting Clinician Unavailable RYAN Admitting Clinician Unavailable Payers Payer Name Policy Type Policy Number Effective Date Expirati on Date Source [facility] [employer] TRS/ERS [facility] PPO 1 [id number] 2021 00:00:00 [facility] MEDICARE NOVITAS MB [id number] [facility] [employer] MEDICARE ERS [id number] 2017 00:00:00 Problems Condition Name Condition Details Condition Category Status Onset Date Resolution Date Last Treatment Date Treating Clinician Comments Source [id number] Unspecifie d rotator cuff tear or rupture of left shoulder, not specified as traumatic Problem [facility] [id number] Other specific arthropath ies, not elsewhere classified , left shoulder Problem [facility] [id number] Chronic fatigue Problem [facility] [id number] Menopausal vaginal dryness Problem [facility] [id number] Piriformis syndrome of right side Problem [facility] Sciatica Right sciatic nerve pain Problem [facility] Fibrocysti c breast changes Fibrocysti c breast Problem [facility] Vitamin D deficiency Vitamin D deficiency Problem [facility] Abnormal mammogram Abnormal mammogram Problem [facility] Hyperlipid emia Hyperlipid emia, unspecifie d hyperlipid emia type Problem [facility] [id number] Primary osteoarthr itis of right knee Problem [facility] Diverticul ar disease Diverticul ar disease Problem [facility] [id number] Seasonal allergies Problem [facility] [id number] Aftercare following joint replacemen t surgery Problem [facility] [id number] Tinnitus of both ears Problem [facility] [id number] Vaginal bleeding Problem [facility] [id number] Presence of right artificial knee joint Problem [facility] [id number] Osteoporos is, unspecifie d osteoporos is type, unspecifie d pathologic al fracture presence Problem [facility] [id number] Allergic rhinitis, unspecifie d seasonalit y, unspecifie d trigger Problem [facility] Allergies, Adverse Reactions, Alerts Allergy Name Allergy Type Status Severity Reaction(s) Onset Date Inactive Date Treating Clinician Comments Source gabapent in gabapent in Active Unknown [facility] NO KNOWN ALLERGIE S Drug Class Active [facility] Social History Social Habit Start Date Stop Date Quantity Comments Source History of Tobacco Use [facility] Sex Assigned At [facility] Smoking Status Start Date Stop Date Source Never Smoker [facility] Medications Ordered Medication Name Filled Medication Name Start Date Stop Date Current Medication? Ordering Clinician Indication Dosage Frequency Signature (SIG) Comments Components Source Acetaminoph en-Codeine 300-30 MG Acetaminoph en-Codeine 300-30 MG 3-0 8-08 00:00: 00 No 1{table t_as_ne eded} QID Acetaminop hen-Codein e 300-30 MG Acetaminoph en-Codeine 300-30 MG Acetaminoph en-Codeine 300-30 MG 3-0 8-08 00:00: 00 No 1{table t_as_ne eded} QID Acetaminop hen-Codein e 300-30 MG Acetaminoph en-Codeine 300-30 MG Acetaminoph en-Codeine 300-30 MG 3-0 8-08 00:00: 00 No 1{table t_as_ne eded} QID Acetaminop hen-Codein e 300-30 MG Acetaminoph en-Codeine 300-30 MG Acetaminoph en-Codeine 300-30 MG 2022-0 8-08 00:00: 00 No 1{table t_as_ne eded} QID Acetaminop hen-Codein e 300-30 MG Acetaminoph en-Codeine 300-30 MG Acetaminoph en-Codeine 300-30 MG 3-0 8-08 00:00: 00 No 1{table t_as_ne eded} QID Acetaminop hen-Codein e 300-30 MG Kenalog (Triamcinol one) Kenalog (Triamcinol one) 0 2-09 00:00: 00 No 40mg [facility] Bupivicaine Lutts Bupivicaine Lutts 2-09 00:00: 00 No 2.5mg [facility] Kenalog (Triamcinol one) Kenalog (Triamcinol one) 2022-0 2- 00:00: 00 No 40mg [facility] Bupivicaine Lutts Bupivicaine Lutts 0 2-09 00:00: 00 No 2.5mg [facility] Kenalog (Triamcinol one) Kenalog (Triamcinol one) 2022-0 2- 00:00: 00 No 40mg [facility] Bupivicaine Lutts Bupivicaine Lutts 0 2- 00:00: 00 No 2.5mg [facility] Kenalog (Triamcinol one) Kenalog (Triamcinol one) 0 2- 00:00: 00 No 40mg [facility] Bupivicaine Lutts Bupivicaine Lutts 0 2- 00:00: 00 No 2.5mg [facility] Kenalog (Triamcinol one) Kenalog (Triamcinol one) 0 2- 00:00: 00 No 40mg [facility] Bupivicaine Lutts Bupivicaine Lutts 0 09-16 00:00: 00 No 2.5mg [facility] Kenalog (Triamcinol one) Kenalog (Triamcinol one) 0 9- 00:00: 00 No 40mg [facility] Ketorolac 15mg Ketorolac 15mg 2-0 -13 00:00: 00 No 60mg [facility] Kenalog (Triamcinol one) Kenalog (Triamcinol one) 0 9-13 00:00: 00 No 40mg [facility] Ketorolac 15mg Ketorolac 15mg 2-0 9-13 00:00: 00 No 60mg [facility] Kenalog (Triamcinol one) Kenalog (Triamcinol one) 2021-0 9-13 00:00: 00 No 40mg [facility] Ketorolac 15mg Ketorolac 15mg 2-0 9-13 00:00: 00 No 60mg [facility] Kenalog (Triamcinol one) Kenalog (Triamcinol one) 2021-0 9-13 00:00: 00 No 40mg [facility] Ketorolac 15mg Ketorolac 15mg 2-0 9-13 00:00: 00 No 60mg [facility] Kenalog (Triamcinol one) Kenalog (Triamcinol one) 2021-0 - 00:00: 00 No 40mg [facility] Ketorolac 15mg Ketorolac 15mg 2021-0 - 00:00: 00 No 60mg [facility] Kenalog (Triamcinol one) Kenalog (Triamcinol one) 0 - 00:00: 00 No 40mg [facility] Ketorolac 15mg Ketorolac 15mg 2-0 - 00:00: 00 No 60mg [facility] Kenalog (Triamcinol one) Kenalog (Triamcinol one) 0 - 00:00: 00 No 40mg [facility] Ketorolac 15mg Ketorolac 15mg 2021-0 - 00:00: 00 No 60mg [facility] Naproxen 250 MG Naproxen 250 MG 2021-0 04-20 00:00: 00 05-05 00:00 :00 No 1{table t_as_ne eded} BID Naproxen 250 MG Naproxen 250 MG Naproxen 250 MG 2021-0 04-20 00:00: 00 05-05 00:00 :00 No 1{table t_as_ne eded} BID Naproxen 250 MG Estrace 0.1 MG/GM Estrace 0.1 MG/GM 0 01-05 00:00: 00 No Estrace 0.1 MG/GM Estrace 0.1 MG/GM Estrace 0.1 MG/GM 0 01-05 00:00: 00 No Estrace 0.1 MG/GM Estrace 0.1 MG/GM Estrace 0.1 MG/GM 2021-0 01-05 00:00: 00 No Estrace 0.1 MG/GM Estrace 0.1 MG/GM Estrace 0.1 MG/GM 2021-0 01-05 00:00: 00 No Estrace 0.1 MG/GM Estrace 0.1 MG/GM Estrace 0.1 MG/GM 2021-0 01-05 00:00: 00 No Estrace 0.1 MG/GM Estrace 0.1 MG/GM Estrace 0.1 MG/GM 2021-0 01-05 00:00: 00 No Estrace 0.1 MG/GM Estrace 0.1 MG/GM Estrace 0.1 MG/GM 2021-0 01-05 00:00: 00 No Estrace 0.1 MG/GM Estrace 0.1 MG/GM Estrace 0.1 MG/GM 2021-0 01-05 00:00: 00 No Estrace 0.1 MG/GM Medrol 4 MG Medrol 4 MG 2021-0 12-08 00:00: 00 12-14 00:00 :00 No QD Medrol 4 MG Montelukast Sodium 10 MG Montelukast Sodium 10 MG 0 01-07 00:00: 00 No 1{table t} Montelukas t Sodium 10 MG Flonase 50 MCG/ACT Flonase 50 MCG/ACT 2020-0 01-07 00:00: 00 No 2{spray _in_eac h_nostr il} QD Flonase 50 MCG/ACT Azelastine HCl Azelastine HCl 2019-0 8-11 00:00: 00 Yes Rodrigo Sommer 1 puff in each nostril [facility] Montelukast Sodium Montelukast Sodium 2019-0 02-17 00:00: 00 Yes Rodrigo Sommer 1 tablet [facility] Flonase Flonase 2019-0 02-17 00:00: 00 Yes Rodrigo Sommer 2 spray in each nostril [facility] Cetirizine HCl Cetirizine HCl 0 02-17 00:00: 00 Yes Rodrigo Sommer 1 tablet [facility] Tramadol HCl Tramadol HCl 0 01-13 00:00: 00 Yes Rodrigo Sommer 1 tablet as needed [facility] traMADol HCl 50 MG traMADol HCl 50 MG 2019-0 01-13 00:00: 00 No 1{table t_as_ne eded} traMADol HCl 50 MG traMADol HCl 50 MG traMADol HCl 50 MG 2019-0 01-13 00:00: 00 No 1{table t_as_ne eded} traMADol HCl 50 MG Kenalog (Triamcinol one) Kenalog (Triamcinol one) 2018-08 0-07 00:00: 00 No 40mg [facility] Kenalog (Triamcinol one) Kenalog (Triamcinol one) 2018-08 0-07 00:00: 00 No 40mg [facility] Kenalog (Triamcinol one) Kenalog (Triamcinol one) 2018-08 007 00:00: 00 No 40mg [facility] Kenalog (Triamcinol one) Kenalog (Triamcinol one) 2018-08 0 00:00: 00 No 40mg [facility] Kenalog (Triamcinol one) Kenalog (Triamcinol one) 2018-08 0 00:00: 00 No 40mg [facility] Kenalog (Triamcinol one) Kenalog (Triamcinol one) 2018-08 0 00:00: 00 No 40mg [facility] Kenalog (Triamcinol one) Kenalog (Triamcinol one) 2018-08 007 00:00: 00 No 40mg [facility] Kenalog (Triamcinol one) Kenalog (Triamcinol one) 2018-08 007 00:00: 00 No 40mg [facility] Kenalog (Triamcinol one) Kenalog (Triamcinol one) 2018-08 007 00:00: 00 No 40mg [facility] Kenalog (Triamcinol one) Kenalog (Triamcinol one) 0 24 00:00: 00 No 40mg [facility] Dexamethaso ne Dexamethaso ne 0 -24 00:00: 00 No 10mg [facility] Kenalog (Triamcinol one) Kenalog (Triamcinol one) 0 -24 00:00: 00 No 40mg [facility] Dexamethaso ne Dexamethaso ne 12-29 00:00: 00 No 10mg [facility] Kenalog (Triamcinol one) Kenalog (Triamcinol one) 12-29 00:00: 00 No 40mg [facility] Dexamethaso ne Dexamethaso ne 12-29 00:00: 00 No 10mg [facility] Kenalog (Triamcinol one) Kenalog (Triamcinol one) 12-29 00:00: 00 No 40mg [facility] Dexamethaso ne Dexamethaso ne 12-29 00:00: 00 No 10mg [facility] Kenalog (Triamcinol one) Kenalog (Triamcinol one) 12-29 00:00: 00 No 40mg [facility] Dexamethaso ne Dexamethaso ne 12-29 00:00: 00 No 10mg [facility] Kenalog (Triamcinol one) Kenalog (Triamcinol one) 12-29 00:00: 00 No 40mg [facility] Dexamethaso ne Dexamethaso ne 12-29 00:00: 00 No 10mg [facility] Kenalog (Triamcinol one) Kenalog (Triamcinol one) 12-29 00:00: 00 No 40mg [facility] Dexamethaso ne Dexamethaso ne 12-29 00:00: 00 No 10mg [facility] Kenalog (Triamcinol one) Kenalog (Triamcinol one) 12-29 00:00: 00 No 40mg [facility] Dexamethaso ne Dexamethaso ne 12-29 00:00: 00 No 10mg [facility] Kenalog (Triamcinol one) Kenalog (Triamcinol one) 2018-0 5-24 00:00: 00 No 40mg [facility] Dexamethaso ne Dexamethaso ne 0 12-29 00:00: 00 No 10mg [facility] Fluticasone Propionate Fluticasone Propionate Yes Rodrigo Sommer not defined [facility] Virtussin A/C Virtussin A/C Yes Rodrigo Sommer not defined [facility] Baclofen Baclofen Yes Rodrigo Sommer not defined [facility] Nabumetone Nabumetone Yes Rodrigo Sommer not defined [facility] Vit E-Vit K-Safflower Oil Vit E-Vit K-Safflower Oil Yes Rodrigo Sommer not defined [facility] Durango 3-6-9 Durango 3-6-9 Yes Jono Sommer not defined [facility] Tramadol HCl Tramadol HCl Yes Rodrigo Sommer not defined [facility] Gabapentin Gabapentin Yes Rodrigo Sommer not defined [facility] Duloxetine HCl Duloxetine HCl Yes Rodrigo Sommer not defined [facility] Prevagen Prevagen Yes Rodrigo Sommer 1 tablet [facility] Tizanidine HCl Tizanidine HCl Yes Rodrigo Sommer not defined [facility] Ibuprofen Ibuprofen Yes Rodrigo Sommer not defined [facility] Centrum Silver Centrum Silver Yes Rodrigo Sommer as directed [facility] Amoxicillin -Pot Clavulanate Amoxicillin -Pot Clavulanate Yes Rodrigo Sommer not defined [facility] Fluzone High-Dose Fluzone High-Dose Yes Rodrigo Sommer not defined [facility] Durango 3-6-9 Durango 3-6-9 No Om ega 3-6-9 Centrum Silver - Centrum Silver - No Centrum Silver - Cetirizine HCl 10 MG Cetirizine HCl 10 MG No 1{table t} Cetirizine HCl 10 MG Cetirizine HCl 10 MG Cetirizine HCl 10 MG No 1{table t} Cetirizine HCl 10 MG traMADol HCl traMADol HCl No traMADol HCl Macrobid 100 MG Macrobid 100 MG No 1{capsu le_with _food} BID Macrobid 100 MG Azelastine HCl 137 MCG/SPRAY Azelastine HCl 137 MCG/SPRAY No 1{puff_ in_each _nostri l} BID Azelastine HCl 137 MCG/SPRAY Flonase 50 MCG/ACT Flonase 50 MCG/ACT No 2{spray _in_eac h_nostr il} QD Flonase 50 MCG/ACT Centrum Silver - Centrum Silver - No Centrum Silver - Estradiol 0.1 MG/GM Estradiol 0.1 MG/GM No Estradiol 0.1 MG/GM Prevagen 10 MG Prevagen 10 MG No 1{table t} QD Prevagen 10 MG Estradiol 0.1 MG/GM Estradiol 0.1 MG/GM No Estradiol 0.1 MG/GM Centrum Silver - Centrum Silver - No Centrum Silver - Durango 3-6-9 Durango 3-6-9 No Om ega 3-6-9 Montelukast Sodium 10 MG Montelukast Sodium 10 MG No 1{table t} Montelukas t Sodium 10 MG Azelastine HCl 137 MCG/SPRAY Azelastine HCl 137 MCG/SPRAY No 1{puff_ in_each _nostri l} BID Azelastine HCl 137 MCG/SPRAY Macrobid 100 MG Macrobid 100 MG No 1{capsu le_with _food} BID Macrobid 100 MG Prevagen 10 MG Prevagen 10 MG No 1{table t} QD Prevagen 10 MG Cetirizine HCl 10 MG Cetirizine HCl 10 MG No 1{table t} Cetirizine HCl 10 MG Estradiol 0.1 MG/GM Estradiol 0.1 MG/GM No Estradiol 0.1 MG/GM Estradiol 0.1 MG/GM Estradiol 0.1 MG/GM No Estradiol 0.1 MG/GM Cetirizine HCl 10 MG Cetirizine HCl 10 MG No 1{table t} Cetirizine HCl 10 MG [place] 3-6-9 Durango 3-6-9 No Om ega 3-6-9 Centrum Silver - Centrum Silver - No Centrum Silver - Cetirizine HCl 10 MG Cetirizine HCl 10 MG No 1{table t} Cetirizine HCl 10 MG Tylenol Tylenol No Tylenol traMADol HCl 50 MG traMADol HCl 50 MG No 1{table t_as_ne eded} QD traMADol HCl 50 MG Cetirizine HCl 10 MG Cetirizine HCl 10 MG No 1{table t} Cetirizine HCl 10 MG Centrum Silver - Centrum Silver - No Centrum Silver - traMADol HCl 50 MG traMADol HCl 50 MG No 1{table t_as_ne eded} QD traMADol HCl 50 MG One A Day Women 50 Plus One A Day Women 50 Plus No One A Day Women 50 Plus Cetirizine HCl 10 MG Cetirizine HCl 10 MG No 1{table t} Cetirizine HCl 10 MG Centrum Silver - Centrum Silver - No Centrum Silver - traMADol HCl 50 MG traMADol HCl 50 MG No 1{table t_as_ne eded} QD traMADol HCl 50 MG One A Day Women 50 Plus One A Day Women 50 Plus No One A Day Women 50 Plus Cetirizine HCl 10 MG Cetirizine HCl 10 MG No 1{table t} Cetirizine HCl 10 MG Centrum Silver - Centrum Silver - No Centrum Silver - traMADol HCl 50 MG traMADol HCl 50 MG No 1{table t_as_ne eded} QD traMADol HCl 50 MG One A Day Women 50 Plus One A Day Women 50 Plus No One A Day Women 50 Plus Cetirizine HCl 10 MG Cetirizine HCl 10 MG No 1{table t} Cetirizine HCl 10 MG Centrum Silver - Centrum Silver - No Centrum Silver - traMADol HCl 50 MG traMADol HCl 50 MG No 1{table t_as_ne eded} QD traMADol HCl 50 MG One A Day Women 50 Plus One A Day Women 50 Plus No One A Day Women 50 Plus Cetirizine HCl 10 MG Cetirizine HCl 10 MG No 1{table t} Cetirizine HCl 10 MG Centrum Silver - Centrum Silver - No Centrum Silver - Immunizations Ordered Immunization Name Filled Immunization Name Date Status Comments Source Flu Flu 2019-05-09 14:38:00 Completed [facility] Flu 2019-05-09 14:38:00 Completed [facility] 2019-05-09 14:38:00 [facility] 2019-05-09 14:38:00 Completed [facility] FluAD FluAD 2019-05-09 14:38:00 Completed [facility] FluAD FluAD 2019-05-09 14:38:00 Completed [facility] FluAD FluAD 2019-05-09 14:38:00 Completed [facility] FluAD FluAD 2019-05-09 14:38:00 Completed [facility] FluAD FluAD 2019-05-09 14:38:00 Completed [facility] FluAD FluAD 2019-05-09 14:38:00 Completed [facility] FluAD FluAD 2019-05-09 14:38:00 Completed [facility] FluAD FluAD 2019-05-09 14:38:00 Completed [facility] FluAD FluAD 2019-05-09 14:38:00 Completed [facility] FluAD FluAD 2019-05-09 14:38:00 Completed [facility] FluAD FluAD 2019-05-09 14:38:00 Completed [facility] FluAD FluAD 2019-05-09 14:38:00 Completed [facility] Zostavax Zostavax 2014-10-09 14:38:00 Completed [facility] Zostavax Zostavax 2014-10-09 14:38:00 Completed [facility] Zostavax Zostavax 2014-10-09 14:38:00 Completed [facility] Zostavax Zostavax 2014-10-09 14:38:00 Completed [facility] Zostavax Zostavax 2014-10-09 14:38:00 Completed [facility] Zostavax Zostavax 2014-10-09 14:38:00 Completed [facility] Zostavax Zostavax 2014-10-09 14:38:00 Completed [facility] Zostavax Zostavax 2014-10-09 14:38:00 Completed [facility] Zostavax Zostavax 2014-10-09 14:38:00 Completed [facility] Zostavax Zostavax 2014-10-09 14:38:00 Completed [facility] Zostavax Zostavax 2014-10-09 14:38:00 Completed [facility] Zostavax Zostavax 2014-10-09 14:38:00 Completed [facility] Zostavax Zostavax 2014-10-09 14:38:00 Completed [facility] Zostavax Zostavax 2014-10-09 14:38:00 Completed [facility] Zostavax Zostavax 2014-10-09 14:38:00 Completed [facility] Zostavax Zostavax 2014-10-09 14:38:00 Completed [facility] FluAD FluAD Unknown Completed [facility] Zostavax Zostavax Unknown Completed [facility] FluAD FluAD Unknown Completed [facility] Zostavax Zostavax Unknown Completed [facility] FluAD FluAD Unknown Completed [facility] Zostavax Zostavax Unknown Completed [facility] FluAD FluAD Unknown Completed [facility] Zostavax Zostavax Unknown Completed [facility] FluAD FluAD Unknown Completed [facility] Zostavax Zostavax Unknown Completed [facility] Vital Signs Vital Name Observation Time Observation Value Comments S ource height 2023-06-14 13:15:00 60 [in_i] Commo n [facility] weight 2023-06-14 13:15:00 99 [lb_av] Commo n [facility] bmi 2023-06-14 13:15:00 19.33 kg/m2 Comm on [facility] blood pressure systolic 2023-06-14 13:15:00 119 mm[Hg] [facility] blood pressure diastolic 2023-06-14 13:15:00 74 mm[Hg] [facility] height 2023-04-14 14:00:00 60 [in_i] Commo n [facility] weight 2023-04-14 14:00:00 99 [lb_av] Commo n [facility] temperature 2023-04-14 14:00:00 97.7 [degF] Com [facility] bmi 2023-04-14 14:00:00 19.33 kg/m2 Comm on [facility] blood pressure systolic 2023-04-14 14:00:00 112 mm[Hg] [facility] blood pressure diastolic 2023-04-14 14:00:00 74 mm[Hg] [facility] height 2023-03-15 13:00:00 60 [in_i] Commo n [facility] weight 2023-03-15 13:00:00 99 [lb_av] Commo n [facility] temperature 2023-03-15 13:00:00 98.0 [degF] Com [facility] bmi 2023-03-15 13:00:00 19.33 kg/m2 Comm on [facility] blood pressure systolic 2023-03-15 13:00:00 136 mm[Hg] [facility] blood pressure diastolic 2023-03-15 13:00:00 74 mm[Hg] [facility] height 2022-09-16 10:00:00 60 [in_i] Commo n [facility] weight 2022-09-16 10:00:00 100 [lb_av] Comm on [facility] temperature 2022-09-16 10:00:00 97.7 [degF] Com [facility] bmi 2022-09-16 10:00:00 19.53 kg/m2 Comm on [facility] blood pressure systolic 2022-09-16 10:00:00 110 mm[Hg] [facility] blood pressure diastolic 2022-09-16 10:00:00 68 mm[Hg] [facility] height 2022-04-20 10:40:00 60 [in_i] Commo n [facility] weight 2022-04-20 10:40:00 106.4 [lb_av] Co on [facility] temperature 2022-04-20 10:40:00 97.5 [degF] Com [facility] bmi 2022-04-20 10:40:00 20.78 kg/m2 Comm on [facility] oximetry 2022-04-20 10:40:00 99 % Commo n [facility] respiratory rate 2022-04-20 10:40:00 16 /min [facility] blood pressure systolic 2022-04-20 10:40:00 124 mm[Hg] [facility] blood pressure diastolic 2022-04-20 10:40:00 60 mm[Hg] Common [facility] height 2022-03-16 13:00:00 60 [in_i] Commo n [facility] weight 2022-03-16 13:00:00 104.4 [lb_av] Co [facility] temperature 2022-03-16 13:00:00 98.4 [degF] Com [facility] bmi 2022-03-16 13:00:00 20.39 kg/m2 Comm on [facility] blood pressure systolic 2022-03-16 13:00:00 118 mm[Hg] [facility] blood pressure diastolic 2022-03-16 13:00:00 76 mm[Hg] [facility] height 2022-01-05 13:20:00 60 [in_i] Commo n [facility] weight 2022-01-05 13:20:00 106 [lb_av] Comm on [facility] temperature 2022-01-05 13:20:00 97.9 [degF] Com mon [facility] bmi 2022-01-05 13:20:00 20.7 kg/m2 Commo n [facility] oximetry 2022-01-05 13:20:00 96 % Commo n [facility] respiratory rate 2022-01-05 13:20:00 18 /min [facility] blood pressure systolic 2022-01-05 13:20:00 123 mm[Hg] [facility] blood pressure diastolic 2022-01-05 13:20:00 66 mm[Hg] [facility] height 2021-11-16 10:40:00 60 [in_i] [facility] [facility] weight 2021-11-16 10:40:00 104.7 [lb_av] Co mmon [facility] temperature 2021-11-16 10:40:00 97.2 [degF] Com mon [facility] bmi 2021-11-16 10:40:00 20.45 kg/m2 Comm on [facility] oximetry 2021-11-16 10:40:00 100 % Commo n [facility] respiratory rate 2021-11-16 10:40:00 16 /min Common [facility] blood pressure systolic 2021-11-16 10:40:00 121 mm[Hg] [facility] blood pressure diastolic 2021-11-16 10:40:00 60 mm[Hg] [facility] height 2021-09-29 13:00:00 60 [in_i] Commo n [facility] weight 2021-09-29 13:00:00 108 [lb_av] Comm on [facility] temperature 2021-09-29 13:00:00 98.2 [degF] Com [facility] bmi 2021-09-29 13:00:00 21.09 kg/m2 Comm on [facility] blood pressure systolic 2021-09-29 13:00:00 118 mm[Hg] Common [facility] blood pressure diastolic 2021-09-29 13:00:00 68 mm[Hg] [facility] height 2021-07-06 13:40:00 60 [in_i] Commo n [facility] weight 2021-07-06 13:40:00 109.2 [lb_av] Co mmon [facility] temperature 2021-07-06 13:40:00 97.7 [degF] Com [facility] bmi 2021-07-06 13:40:00 21.32 kg/m2 Comm on [facility] oximetry 2021-07-06 13:40:00 98 % Commo n [facility] respiratory rate 2021-07-06 13:40:00 16 /min [facility] blood pressure systolic 2021-07-06 13:40:00 139 mm[Hg] [facility] blood pressure diastolic 2021-07-06 13:40:00 61 mm[Hg] [facility] Encounters Start Date/Time End Date/Time Encounter Type Admission Type Attending [facility] Care Facility Care Department Encounter ID Source 2023-03-15 13:14:00 [facility] [id number] [facility] 2022-11-25 09:11:01 Outpatient Nicki BUSTOSLC STLC [id number] [facility] 2022-09-16 12:00:01 Outpatient Nicki BUSTOS STLMLC STLMLC [id number] [facility] 2022-03-17 11:03:00 Outpatient Bustos, Na STLMLC STLMLC [id number] [facility] 2021-12-31 11:18:00 Outpatient Bustos, Na STLMLC STLMLC [id number] [facility] 2021-12-09 09:06:02 Outpatient Bustos, Na STLMLC STLMLC [id number] [facility] 2021-11-16 09:57:02 Outpatient Bustos, Na STLMLC STLMLC [id number] [facility] 2021-09-10 13:01:00 Outpatient Nicki Bustos STLMLC STLMLC [id number] [facility] 2021-09-09 14:46:01 Outpatient Nicki Bustos STLMLC STLMLC [id number] [facility] 2021-09-03 09:13:15 Outpatient 3 [id number] ENC[facility] ORJ [id number] [facility] 2021-09-03 09:11:46 Outpatient 3 [id number] ENC[facility] REF [id number] [facility] 2021-09-03 09:11:29 Outpatient 3 [id number] ENC[facility] REF [id number] [facility] 2021-09-03 09:08:29 Outpatient [id number] ENCPL MIKALA [id number] [facility] 2021-09-02 13:39:43 Outpatient Bustos, Na STLMLC STLMLC [id number] [facility] 2021-09-02 13:09:08 Outpatient Bustos, Na STLMLC STLMLC [id number] [facility] 2021-09-02 13:07:27 Outpatient Bustos, Na STLMLC STLMLC [id number] [facility] 2021-09-02 12:35:33 Outpatient Bustos, Na STLMLC STLMLC [id number] [facility] 2021-09-02 12:31:31 Outpatient Bustos, Na STLMLC STLMLC [id number] [facility] 2021-09-02 12:29:55 Outpatient Bustos, Na STLMLC STLMLC [id number] [facility] 2021-09-02 12:21:21 Outpatient Bustos, Na STLMLC STLMLC [id number] [facility] 2021-09-02 12:20:41 Outpatient Bustos, Na STLMLC STLMLC [id number] [facility] 2021-09-02 12:13:13 Outpatient Bustos, Na STLMLC STLMLC [id number] [facility] 2021-09-02 12:12:39 Outpatient Bustos, Na STLMLC STLMLC [id number] [facility] 2021-09-02 12:07:04 Outpatient Bustos, Na STLMLC STLMLC [id number] [facility] 2021-09-02 12:06:17 Outpatient Bustos, Na STLMLC STLMLC [id number] [facility] 2021-09-02 12:01:09 Outpatient Bustos, Na STLMLC STLMLC [id number] [facility] 2021-09-02 11:44:39 Outpatient Bustos, Na STLMLC STLMLC [id number] [facility] 2021-09-02 11:34:54 Outpatient Bustos, Na STLMLC STLMLC [id number] [facility] 2021-09-02 11:30:52 Outpatient Bustos, Na STLMLC STLMLC [id number] [facility] 2021-09-02 11:27:32 Outpatient Anya Hernandez STLMLC STLMLC [id number] [facility] 2017-01-20 05:00:00 Inpatient [facility] [id number] [facility] 2023-06-14 00:00:00 2023-06-14 00:00:00 OFFICE VISIT ESTAB PT LEVEL 3 STLMLC STLMLC [id number] [facility] 2023-04-14 00:00:00 2023-04-14 00:00:00 OFFICE VISIT ESTAB PT LEVEL 4 STLMLC STLMLC [id number] [facility] 2023-03-16 00:00:00 2023-03-16 00:00:00 (TEL) STLMLC STLMLC [id number] [facility] 2023-03-15 00:00:00 2023-03-15 00:00:00 OFFICE VISIT ESTAB PT LEVEL 4 STLMLC STLMLC [id number] [facility] 2022-09-16 00:00:00 2022-09-16 00:00:00 OFFICE VISIT ESTAB PT LEVEL 4 STLMLC STLMLC [id number] [facility] 2022-04-27 00:00:00 2022-04-27 00:00:00 (TEL) STLMLC STLMLC [id number] [facility] 2022-04-22 00:00:00 2022-04-22 00:00:00 (TEL) STLMLC STLMLC [id number] [facility] 2022-04-20 00:00:00 2022-04-20 00:00:00 OFFICE VISIT EST PT LEVEL 3 STLMLC STLMLC [id number] [facility] 2022-04-19 00:00:00 2022-04-19 00:00:00 (TEL) STLMLC STLMLC [id number] [facility] 2022-03-16 00:00:00 2022-03-16 00:00:00 OFFICE VISIT ESTAB PT LEVEL 4 STLMLC STLMLC [id number] [facility] 2022-03-04 00:00:00 2022-03-04 00:00:00 Outpatient RYAN CALLAHAN [facility] [id number] Juan Antonio gold [facility] 2022-01-05 00:00:00 2022-01-05 00:00:00 OFFICE VISIT EST PT LEVEL 3 STLMLC STLMLC [id number] [facility] 2021-12-16 00:00:00 2021-12-16 00:00:00 (TEL) STLMLC STLMLC [id number] [facility] 2021-12-16 00:00:00 2021-12-16 00:00:00 OL DIG E/M SVC 11-20 MIN STLMLC STLMLC [id number] [facility] 2021-12-14 00:00:00 2021-12-14 00:00:00 (TEL) STLMLC STLMLC [id number] [facility] 2021-12-08 00:00:00 2021-12-08 00:00:00 OL DIG E/M SVC 11-20 MIN STLMLC STLMLC [id number] [facility] 2021-11-23 00:00:00 2021-11-23 00:00:00 (TEL) STLMLC STLMLC [id number] [facility] 2021-11-16 00:00:00 2021-11-16 00:00:00 OFFICE VISIT EST PT LEVEL 3 STLMLC STLMLC [id number] [facility] 2021-11-12 00:00:00 2021-11-12 00:00:00 (TEL) STLMLC STLMLC [id number] [facility] 2021-09-29 00:00:00 2021-09-29 00:00:00 OFFICE VISIT ESTAB PT LEVEL 4 STLMLC STLMLC [id number] [facility] 2021-07-06 00:00:00 2021-07-06 00:00:00 OFFICE VISIT EST PT LEVEL 3 STLMLC STLMLC [id number] [facility] 2021-04-22 00:00:00 2021-04-22 00:00:00 Outpatient STLMLC STLMLC [id number] [facility] 2021-04-17 00:00:00 2021-04-17 00:00:00 Outpatient STLMLC STLMLC [id number] [facility] 2021-04-02 00:00:00 2021-04-02 00:00:00 Outpatient STLMLC STLMLC [id number] [facility] 2021-03-16 00:00:00 2021-03-16 00:00:00 Outpatient STLMLC STLMLC [id number] [facility] 2021-01-15 00:00:00 2021-01-15 00:00:00 Outpatient STLMLC STLMLC [id number] [facility] 2021-01-07 00:00:00 2021-01-07 00:00:00 Outpatient STLMLC STLMLC [id number] [facility] 2021-01-07 00:00:00 2021-01-07 00:00:00 Outpatient STLMLC STLMLC [id number] [facility] 2021-01-06 00:00:00 2021-01-06 00:00:00 Outpatient STLMLC STLMLC [id number] [facility] 2020-12-30 00:00:00 2020-12-30 00:00:00 Outpatient STLMLC STLMLC [id number] [facility] 2020-10-05 00:00:00 2020-10-05 00:00:00 Outpatient STLMLC STLMLC [id number] [facility] 2020-09-29 00:00:00 2020-09-29 00:00:00 Outpatient STLMLC STLMLC [id number] [facility] 2020-09-29 00:00:00 2020-09-29 00:00:00 Outpatient STLMLC STLMLC [id number] [facility] 2020-09-15 00:00:00 2020-09-15 00:00:00 Outpatient STLMLC STLMLC [id number] [facility] 2020-09-08 00:00:00 2020-09-08 00:00:00 Outpatient STLMLC STLMLC [id number] [facility] 2020-08-22 00:00:00 2020-08-22 00:00:00 Outpatient STLMLC STLMLC [id number] [facility] 2020-07-21 00:00:00 2020-07-21 00:00:00 Outpatient STLMLC STLMLC [id number] [facility] 2020-07-11 00:00:00 2020-07-11 00:00:00 Outpatient STLMLC STLMLC [id number] [facility] 2020-06-27 00:00:00 2020-06-27 00:00:00 Outpatient STLMLC STLMLC [id number] [facility] 2020-06-20 00:00:00 2020-06-20 00:00:00 Outpatient STLMLC STLMLC [id number] [facility] 2020-06-11 00:00:00 2020-06-11 00:00:00 Outpatient STLMLC STLMLC [id number] [facility] 2020-04-15 10:00:00 2020-04-15 10:00:00 [facility] [id number] [facility] 2020-03-18 10:20:00 2020-03-18 10:20:[address] [facility] [id number] [facility] 2020-03-12 15:00:00 2020-03-12 15:00:00 [facility] [id number] [facility] 2020-03-11 15:52:00 2020-03-11 15:52:00 [facility] [address] [id number] [facility] 2020-03-11 14:31:00 2020-03-11 14:31:[address] [facility] [facility] [id number] [facility] 2020-03-11 10:00:00 2020-03-11 10:00:00 Outpatient SWATHI SANTIAGO [facility] [id number] [facility] 2020-02-26 08:46:00 2020-02-26 08:46:[address] [facility] [address] [id number] [facility] 2020-02-20 15:31:00 2020-02-20 15:31:00 [facility] [address] [facility] [address] [facility] [id number] [facility] 2020-02-18 09:00:00 2020-02-18 09:00:00 [facility] [address] [facility] [id number] [facility] 2020-01-25 14:30:00 2020-01-25 14:30:00 [facility] [address] [facility] [address] [facility] [id number] [facility]
[2024-03-06] MEDS ORDERED: NA CHLORIDE 0.9% 500 ML ONE (09:00)
--- NOTE | 2024-03-06 09:07 | RAD REPORT ---
EXAM DESCRIPTION: CT - Head Brain Wo Cont - 03/06/2024 9:00 am CLINICAL HISTORY: DIZZINESS Headache, drowsiness COMPARISON: Sinus Wo Cont dated 03/06/2024 TECHNIQUE: All CT scans are performed using dose optimization technique as appropriate and may inclu de automated exposure control or mA/KV adjustment according to patient size. FINDINGS: No intracranial hemorrhage, hydrocephalus or extra-axial fluid collection.Prominent brain atrophy is noted particularly frontal lobe.No areas of brain edema or evidence of midline shift. The paranasal sinuses and mastoids are clear. The calvarium is intact. IMPRESSION: No acute intracranial abnormality. Prominent frontal brain atrophy.
--- NOTE | 2024-03-06 09:08 | RAD REPORT ---
EXAM DESCRIPTION: CT - Sinus Wo Cont - 03/06/2024 8:59 am CLINICAL HISTORY: tinnitus Headache, drowsiness COMPARISON: No comparisons TECHNIQUE: Axial 1 mm thick images of the paranasal sinuses were obtained. Coronal and sagittal refo rmatted images were reviewed. All CT scans are performed using dose optimization technique as appropriate and may include automated exposure control or mA/KV adjustment according to patient size. FINDINGS: The paranasal sinuses and mastoids are clear. Small right-sided john bullosa. The ostiomeatal units are patent. The frontal recesses are patent. No significant skull-base finding. IMPRESSION: Unremarkable examination.
[2024-03-06] MEDS ORDERED: DIAZEPAM 2 MG TABLET ONE (09:09)
[2024-03-06 09:18] LABS: Absolute Lymphocytes (CBC) 1.4 K/uL (0.7-4.9); Absolute Monocytes 0.6 K/uL (0.1-1.3); Absolute Neutrophil 4.7 K/uL (1.8-8.0); Basophils % 0.7 % (0-1.3); Eosinophils % 0.3 % (0-4.4); Hematocrit 39.2 % (36.0-45.0); Lymphocytes % 20.3 % (15.3-44.8); MCH 29.6 pg (27.0-35.0); MCHC 33.3 g/dL (32.0-36.0); MCV 89.1 fL (80-100); MPV 7.6 fL (7.6-11.3); Monocytes % 8.5 % (3.3-12.3); Neutrophils % 70.2 % (41.7-73.7); Nucleated Red Blood Cells % 0.1 % (0-0); Platelets 316 thou/uL (152-406); Red Cell Distribution Width 13.3 % (12.1-15.2)
[2024-03-06 09:51] LABS: Albumin 4.1 g/dL (3.4-5.0); Albumin/Globulin Ratio 1.1 (1.1-1.8); Anion Gap 7.7 mEq/L (5.0-15.0); Bilirubin Total 0.3 mg/dL (0.2-1.0); Globulin 3.8 g/dL (2.3-3.5); Potassium 3.7 mEq/L (3.5-5.1); Protein, Total 7.9 g/dL (6.4-8.2); Troponin High Sensitivity 4.7 pg/mL (<58.9)
[2024-03-06 10:38] LABS: Specific Gravity 1.013 (1.005-1.030); Sqamous Epithelial None Seen /HPF (None Seen); Urine Bacteria None Seen /HPF (<20); Urine Bilirubin NEGATIVE (Negative); Urine Blood Negative (Negative); Urine Clarity Clear (Clear); Urine Color Colorless (Yellow); Urine Culture Reflex Order NOT NEEDED; Urine Glucose NEGATIVE (Negative); Urine Ketones NEGATIVE (Negative); Urine Microscopic Reflex YN ORDER UMIC; Urine Mucus Slight /HPF (None Seen); Urine Nitrite NEGATIVE (Negative); Urine Protein NEGATIVE (Negative); Urine RBC <5 /HPF (None Seen); Urine Urobilinogen Normal (Normal); Urine WBC <5 /HPF (<5); Urine pH 6.5 (5.0-7.0)
--- NOTE | 2024-03-06 10:53 | ER ---
Nurse's Notes [facility] Name: Sarah Chapman Age: 78 yrs Sex: Female : 1945 Arrival Date: 03/06/2024 Time: 07:56 Bed 11 Private MD: Diagnosis: Tinnitus, bilateral;Dizziness and giddiness;Anxiety Presentation: 03/06 08:16 Coronavirus screen: Client denies travel out of the [place] in the last 14 days. At this ll1 time, the client does not indicate any symptoms associated with coronavirus-19. Ebola Screen: Patient denies travel to an Ebola-affected area in the 21 days before illness onset. Initial Sepsis Screen: Does the patient meet any 2 criteria? No. Patient's initial sepsis screen is negative. Does the patient have a suspected source of infection? No. Patient's initial sepsis screen is negative. Risk Assessment: Do you want to hurt yourself or someone else? Patient reports no desire to harm self or others. Onset of symptoms was March 04, 2024. 08:16 Method Of Arrival: Ambulatory ll1 08:16 Acuity: LANCE 3 ll1 08:16 Chief complaint: Patient states: Dizziness and anxiety for a few days. Already saw Dr. araseli Nesbitt for this, but doesn't want to take the anxiety medication this morning. Triage Assessment: 08:10 General: Appears uncomfortable, Behavior is cooperative, appropriate for age, anxious. ll1 08:10 Pain: Denies pain. Neuro: Reports dizziness. ll1 Historical: - Allergies: 08:09 No Known Allergies; ll1 - PMHx: 08:09 Hypercholesterolemia; ll1 - PSHx: 08:09 R knee; ll1 - Immunization history:: Adult Immunizations up to date. - Social history:: Smoking status: Patient denies any tobacco usage or history of. Screenin:26 [facility] ED Fall Risk Assessment (Adult) History of falling in the last 3 months, kc6 including since admission No falls in past 3 months (0 pts) Confusion or Disorientation No (0 pts) Intoxicated or Sedated No (0 pts) Impaired Gait No (0 pts) Mobility Assist Device Used No (0 pt) Altered Elimination No (0 pt) Score/Fall Risk Level 0 - 2 = Low Risk. Abuse screen: Denies threats or abuse. Denies injuries from another. Nutritional screening: No deficits noted. Tuberculosis screening: No symptoms or risk factors identified. Assessment: 09:26 General: Appears in no apparent distress. comfortable, well groomed, well developed, kc6 Behavior is calm, cooperative, appropriate for age. Pain: Denies pain. Neuro: Level of Consciousness is awake, alert, obeys commands, Oriented to person, place, time, situation, Appropriate for age Reports dizziness. Cardiovascular: Capillary refill < 3 seconds. Respiratory: Airway is patent Trachea midline Respiratory effort is even, unlabored, Respiratory pattern is regular, symmetrical. GI: No signs and/or symptoms were reported involving the gastrointestinal system. : No signs and/or symptoms were reported regarding the genitourinary system. EENT: No signs and/or symptoms were reported regarding the EENT system. Derm: No signs and/or symptoms reported regarding the dermatologic system. Skin is intact, is healthy with good turgor, Skin is pink, warm \T\ dry. Musculoskeletal: No signs and/or symptoms reported regarding the musculoskeletal system. Circulation, motion, and sensation intact. Capillary refill < 3 seconds, Range of motion: intact in all extremities. 10:13 Reassessment: Patient appears in no apparent distress at this time. No changes from kc6 previously documented assessment. Patient and/or family updated on plan of care and expected duration. Pain level reassessed. Patient is alert, oriented x 3, equal unlabored respirations, skin warm/dry/pink. 11:47 Reassessment: Patient appears in no apparent distress at this time. No changes from kc6 previously documented assessment. Patient and/or family updated on plan of care and expected duration. Pain level reassessed. Patient is alert, oriented x 3, equal unlabored respirations, skin warm/dry/pink. Patient states feeling better. Patient states symptoms have improved. Vital Signs: 08:16 BP 133 / 66; Pulse 70; Resp 16; Temp 97.2; Pulse Ox 100% ; Pain 0/10; ll1 08:16 Pain Scale: Adult ll1 ED Course: 08:07 Patient arrived in ED. mg5 08:09 Arm band placed on Patient placed in an exam room, on a stretcher. ll1 08:17 Triage completed. ll1 08:18 Janna Lazo RN is Primary Nurse. kc6 08:24 Krystina Arechiga MD is Attending Physician. sd2 08:59 CT Head Brain wo Cont In Process Unspecified. EDMS 08:59 CT Sinus Wo Cont In Process Unspecified. EDMS 09:10 Troponin High Sensitivity Sent. bc6 09:10 CMP Sent. bc6 09:10 CBC with Diff Sent. bc6 09:10 Initial lab(s) drawn, by me, sent to lab. Inserted saline lock: 22 gauge in right bc6 antecubital area, using aseptic technique. Blood collected. 09:18 EKG done, by ED staff, reviewed by Krystina Arechiga MD. bc6 09:26 Patient has correct armband on for positive identification. Bed in low position. Call kc6 light in reach. Side rails up X2. Adult w/ patient. Pulse ox on. NIBP on. Door closed. Noise minimized. Lights dimmed. Warm blanket given. Pillow given. Diet: Patient given water. Tolerated well. 10:12 Urinalysis w/ reflexes Sent. kc6 10:13 Assisted to bathroom. kc6 11:47 No provider procedures requiring assistance completed. IV discontinued, intact, kc6 bleeding controlled, No redness/swelling at site. Pressure dressing applied. Administered Medications: 09:07 Not Given (Other Intervention Used; on back order, not available): diazepam0.5 mg IVP kc6 once 09:14 Drug: NS 0.9% IV 500 ml IV at bolus once Route: IV; Rate: bolus; Site: right kc6 antecubital; 10:12 Follow up: Response: No adverse reaction; IV Status: Completed infusion; IV Intake: kc6 500ml 09:14 Drug: Diazepam PO 2 mg PO once Route: PO; kc6 10:12 Follow up: Response: No adverse reaction; Anxiety decreased kc6 Medication: 11:48 VIS not applicable for this client. kc6 Intake: 10:12 IV: 500ml; Total: 500ml. kc6 Outcome: 10:52 Discharge ordered by . sd2 11:47 Discharged to home ambulatory, with family, kc6 11:47 Condition: good 11:47 Discharge instructions given to patient, family, Instructed on discharge instructions, follow up and referral plans. no drinking with medication, no driving heavy equipment, medication usage, Demonstrated understanding of instructions, follow-up care, medications, Prescriptions given X 1, 11:48 Patient left the ED. kc6 Signatures: Dispatcher [employer] EDJamshid Hansen RN RN ll1 Krystina Arechiga MD MD sd2 Janna Lazo RN RN kc6 Martha Bernal6 Milvia Rand 5 Corrections: (The following items were deleted from the chart) 08:27 08:27 General: Appears ll1 ll1
--- NOTE | 2024-03-06 10:53 | EDPHYS ---
Physician Documentation [facility] Name: Sarah Chapman Age: 78 yrs Sex: Female : 1945 Arrival Date: 03/06/2024 Time: 07:56 Bed 11 Private MD: ED Physician Krystina Arechiga HPI: 03/06 09:11 This 78 yrs old Female presents to ER via Ambulatory with complaints of sd2 Anxiety - Emotional. 09:11 78-year-old female presents the chief complaint of tinnitus and "buzzing" in her head sd2 that has kept her from sleeping overnight. She reports it originally started about 2 weeks ago. She was seen by ENT this past who ordered a CT of her sinuses and for her to use some nasal sprays and nasal rinses and started her on Augmentin and a Medrol Dosepak. She has been taking the antibiotics and steroids but has not used any other nasal sprays or rinses. She was not aware of these and is illiterate and cannot read her discharge paperwork. Her cousin is at bedside and also reports significant her cousin is at bedside also reports significant anxiety which has been progressively worsening over the past few weeks to months.. Historical: - Allergies: 08:09 No Known Allergies; ll1 - PMHx: 08:09 Hypercholesterolemia; ll1 - PSHx: 08:09 R knee; ll1 - Immunization history:: Adult Immunizations up to date. - Social history:: Smoking status: Patient denies any tobacco usage or history of. ROS: 09:11 Constitutional: Negative for fever, chills, and weight loss, Eyes: Negative for injury, sd2 pain, redness, and discharge, 09:11 Cardiovascular: Negative for chest pain, palpitations, and edema, Respiratory: Negative for shortness of breath, cough, wheezing. Abdomen/GI: Negative for abdominal pain, nausea, vomiting, diarrhea. MS/Extremity: Negative for injury and deformity, Skin: Negative for injury, rash, and discoloration, Neuro: Negative for headache, numbness and tingling. Psych: Negative for depression, suicide ideation, homicidal ideation, and hallucinations, positive for anxiety 09:11 ENT: Positive for tinnitus, Negative for injury or acute deformity, drainage from ear(s), Exam: 09:11 Constitutional: This is a well developed, well nourished patient who is awake, alert, sd2 and in no acute distress. Head/Face: Normocephalic, atraumatic. Eyes: EOMI, normal conjunctiva bilaterally Chest/axilla: Normal chest wall appearance and motion. Nontender with no deformity. Cardiovascular: Regular rate and rhythm with a normal S1 and S2. No gallops, murmurs, or rubs. 2+ distal pulses. Respiratory: Lungs have equal breath sounds bilaterally, clear to auscultation and percussion. No rales, rhonchi or wheezes noted. No increased work of breathing, no retractions or nasal flaring. Abdomen/GI: Soft, non-tender, with normal bowel sounds. No guarding or rebound. No evidence of tenderness throughout. Skin: Warm, dry with normal turgor. Normal color with no rashes, no lesions, and no evidence of cellulitis. MS/ Extremity: Pulses equal, no cyanosis. Neurovascular intact. Full, normal range of motion. Neuro: Awake and alert, GCS 15, oriented to person, place, time, and situation. Cranial nerves II-XII grossly intact. Motor strength 5/5 in all extremities. Sensory grossly intact. Cerebellar exam normal. Normal gait. Psych: Awake, alert, with orientation to person, place and time. Appears anxious. 09:17 ECG was reviewed by the Attending Physician. NSR, rate 61, no STEMI criteria or sd2 significant ST-T wave changes Vital Signs: 08:16 BP 133 / 66; Pulse 70; Resp 16; Temp 97.2; Pulse Ox 100% ; Pain 0/10; ll1 08:16 Pain Scale: Adult ll1 MDM: 08:24 Patient medically screened. sd2 09:11 Differential Diagnosis vertigo, CVA/TIA, sinusitis, middle ear pathology, anxiety among sd2 others. Data reviewed: vital signs, nurses notes. I considered the following discharge prescriptions or medication management in the emergency department Medications were administered in the Emergency Department. See MAR. Historians other than the Patient: Cousin at bedside provides further history due to patient's illiteracy issues. Care significantly affected by the following Social Determinants of Health: Illiteracy. 10:49 Counseling: I had a detailed discussion with the patient and/or guardian regarding the sd2 historical points, exam findings, and any diagnostic results supporting the discharge/admit diagnosis, lab results, radiology results, the need for outpatient follow up, to return to the emergency department if symptoms worsen or persist or if there are any questions or concerns that arise at home. Response to treatment: the patient's symptoms have markedly improved after treatment. ED course: Pt feeling much improved after treatment. Was able to get some sleep and tinnitus she reports is not as loud. Labs grossly WNCL. Trop neg. EKG with no ischemic changes. CT negative. Pt ambulatory without difficulty. She is comfortable with plan for discharge with outpatient follow up with both her ENT and PCP. Will prescribe hydroxyzine prn for anxiety as well. She is to start a low dose unknown anti-anxiety medication tomorrow that will be picked up from the pharmacy. I advised both her and her cousin to take my prescription to the pharmacy at time of pickup to ensure the hydroxyzine is okay to take with the other medication prescribed since they do not know the name. They verbalize understanding of this, the discharge plan and strict return precautions.. 03/06 08:46 Order name: CBC with Diff; Complete Time: 09:51 sd2 03/06 08:46 Order name: CMP; Complete Time: 09:51 sd2 03/06 08:46 Order name: Troponin High Sensitivity; Complete Time: 09:51 sd2 03/06 08:46 Order name: Urinalysis w/ reflexes; Complete Time: 10:46 sd2 03/06 08:46 Order name: CT Head Brain wo Cont; Complete Time: 09:09 sd2 03/06 08:46 Order name: CT Sinus Wo Cont; Complete Time: 09:09 sd2 03/06 08:46 Order name: EKG - Nurse/Tech; Complete Time: 09:14 sd2 Administered Medications: 09:07 Not Given (Other Intervention Used; on back order, not available): diazepam0.5 mg IVP kc6 once 09:14 Drug: NS 0.9% IV 500 ml IV at bolus once Route: IV; Rate: bolus; Site: right kc6 antecubital; 10:12 Follow up: Response: No adverse reaction; IV Status: Completed infusion; IV Intake: kc6 500ml 09:14 Drug: Diazepam PO 2 mg PO once Route: PO; kc6 10:12 Follow up: Response: No adverse reaction; Anxiety decreased kc6 Disposition Summary: 03/06/24 10:52 Discharge Ordered Problem: new sd2 Symptoms: have improved sd2 Condition: Stable sd2 Diagnosis - Tinnitus, bilateral sd2 - Dizziness and giddiness sd2 - Anxiety sd2 Followup: sd2 - With: Private Physician - When: 2 - 3 days - Reason: Recheck today's complaints, Continuance of care, Re-evaluation by your physician Discharge Instructions: - Discharge Summary Sheet sd2 - Dizziness sd2 - Tinnitus sd2 - Managing Anxiety, Adult sd2 Forms: - Medication Reconciliation Form sd2 - Antibiotic Education sd2 - Prescription Opioid Use sd2 - Patient Portal Instructions sd2 - Leadership Thank You Letter sd2 Prescriptions: - Hydroxyzine HCl 25 mg Oral tablet - take 1 tablet ORAL route every 6 hours As needed; 15 tablet; Refills: 0, sd2 Product Selection Permitted Signatures: Dispatcher [employer] EDMS Jamshid Vizcarra RN RN ll1 Krystina Arechiga MD MD sd2 Janna Lazo RN RN kc6 Corrections: (The following items were deleted from the chart) 08:46 08:46 CBC+H.LAB.BRZ ordered. EDMS EDMS 08:46 08:46 COMPREHENSIVE METABOLIC PANEL+C.LAB.BRZ ordered. EDMS EDMS 08:46 08:46 Troponin High Sensitivity+C.LAB.BRZ ordered. EDMS EDMS
[2024-03-06 12:13] VITALS: BP 133/66; TEMP 97.2; O2SAT 100
--- NOTE | 2024-03-09 13:39 | EKG ---
Test Date: 2024-03-06 Test Time: 09:15:10 Curriculum Counselor: NOA MEASUREMENT RESULTS: Intervals: Rate: 61 VT: 132 QRSD: 84 QT: 416 QTc: 418 [place]: P: 29 VT: 132 QRS: -14 T: 67 INTERPRETIVE STATEMENTS: Normal sinus rhythm Normal ECG Compared to ECG 09/12/2019 09:42:04 Sinus bradycardia no longer present Electronically Signed On 03-09-24 13:32:[address]
== END 2024-03-06 11:48 | disposition home or self-care (01) ==
LOC: ER 07:56
DX: H93.13 Tinnitus, bilateral (principal); F41.9 Anxiety disorder, unspecified
CPT/HCPCS: 85025; 81001; 36415; 84484; 80053; 70450; 70486; J7040; 93005; 96360; 99285

== ENCOUNTER 2024-10-23 13:15 | Emergency (ER) | payer OTHER ==
--- OUTSIDE RECORDS SUMMARY | 2024-10-23 13:19 | XMS REPORT | Continuity of Care Document ---
Author Name Unknown Address [address] [facility] [address] [place] [address] Organization [facility] [place] Address [address] [facility] [address] [place] [address] Care Team Providers Care Windows Systems Administrator Name Role Phone BUSTOSNicki Attending Clinician Unavailable [id number] Attending Clinician Unavailable Anya Hernandez Attending Clinician Unavailable DR MERCED DELVALLE Attending Clinician Unavailable RYAN Attending Clinician Unavailable SWATHI BARTLETT Attending Clinician Unavailable [id number] Admitting Clinician Unavailable DR MERCED DELVALLE Admitting Clinician Unavailable RYAN Admitting Clinician Unavailable Payers Payer Name Policy Type Policy Number Effective Date Expirati on Date Source [facility] [employer] TRS/ERS [facility] PPO 1 [id number] 2021 00:00:00 [facility] MEDICARE NOVITAS MB [id number] [facility] [employer] MEDICARE ERS [id number] 2017 00:00:00 Problems Condition Name Condition Details Condition Category Status Onset Date Resolution Date Last Treatment Date Treating Clinician Comments Source Dark yellow urine Dark Yellow Urine Problem Active 2023-08 00:00: 00 [facility] Dysuria Dysuria Problem Active 05-03 00:00: 00 [facility] Acute urinary tract infection Acute Urinary Tract Infection Problem Active 0 9 00:00: 00 [facility] Microscopi c hematuria Microscopi c Hematuria Problem Active 05-03 00:00: 00 [facility] Urge incontinen ce of urine Urge Incontinen ce of Urine Problem Active 0 8 00:00: 00 [facility] 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 Problem Active 0 7- 00:00: 00 [facility] Atrophic vaginitis Atrophic Vaginitis Problem Active 7- [facility] Venereal disease screening Venereal Disease Screening Problem Active 7 00:00: 00 [facility] Herpesviru s infection Herpesviru s Infection Problem Active 7- 00:00: 00 [facility] Acute vaginitis Acute Vaginitis Problem Active 7- 00:00: [facility] Acute cystitis Acute Cystitis Problem Active 12-27 00:00: 00 [facility] Medical Gynecologi lelo examinatio n abnormal Gynecologi lelo Examinatio n Abnormal Problem Active 18 00:00: 00 [facility] Medical Polyp of corpus uteri Polyp of Corpus Uteri Problem Active 10-13 00:00: 00 [facility] Postmenopa usal bleeding Postmenopa usal Bleeding Problem Active 10-13 00:00: 00 [facility] Medical Elevated blood-pres sure reading without diagnosis of hypertensi on Elevated Blood-pres sure Reading without Diagnosis of Hypertensi on Problem Active 10-04 00:00: 00 [facility] Medical Imaging result abnormal Imaging Result Abnormal Problem Active 09-01 00:00: 00 [facility] Genuine stress incontinen ce Genuine Stress Incontinen ce Problem Active 08-16 00:00: 00 [facility] Osteoarthr itis Osteoarthr itis Problem Active 08-16 00:00: 00 [facility] Senile osteoporos is Senile Osteoporos is Problem Active 08-16 00:00: 00 [facility] Pelvic and perineal pain Pelvic and Perineal Pain Problem Active 08-16 00:00: 00 [facility] Urinary tract infectious disease Urinary Tract Infectious Disease Problem Active 08-16 00:00: 00 [facility] [id number] Unspecifie d rotator cuff tear or rupture of left shoulder, not specified as traumatic Problem [facility] [id number] Other specific arthropath ies, not elsewhere classified , left shoulder Problem [facility] [id number] Chronic fatigue Problem [facility] [id number] Menopausal vaginal dryness Problem [facility] [id number] Piriformis syndrome of right side Problem [facility] Sciatica Right sciatic nerve pain Problem [facility] Fibrocysti c breast changes Fibrocysti c breast Problem [facility] Vitamin D deficiency Vitamin D deficiency Problem [facility] Abnormal mammogram Abnormal mammogram Problem [facility] Hyperlipid emia Hyperlipid emia, unspecifie d hyperlipid emia type Problem [facility] [id number] Primary osteoarthr itis of right knee Problem [facility] Diverticul ar disease Diverticul ar disease Problem [facility] [id number] Seasonal allergies Problem [facility] [id number] Aftercare following joint replacemen t surgery Problem [facility] [id number] Tinnitus of both ears Problem [facility] [id number] Vaginal bleeding Problem [facility] [id number] Presence of right artificial knee joint Problem [facility] [id number] Osteoporos is, unspecifie d osteoporos is type, unspecifie d pathologic al fracture presence Problem [facility] [id number] Allergic rhinitis, unspecifie d seasonalit y, unspecifie d trigger Problem [facility] Allergies, Adverse Reactions, Alerts Allergy Name Allergy Type Status Severity Reaction(s) Onset Date Inactive Date Treating Clinician Comments Source gabapent in gabapent in Active Unknown [facility] NO KNOWN ALLERGIE S Drug Class Active [facility] Social History Social Habit Start Date Stop Date Quantity Comments Source History of Tobacco Use [facility] Sex Assigned At [facility] Smoking Status Start Date Stop Date Source Former Smoker [facility] Never Smoker [facility] Medications Ordered Medication Name Filled Medication Name Start Date Stop Date Current Medication? Ordering Clinician Indication Dosage Frequency Signature (SIG) Comments Components Source BUPivacaine HCl BUPivacaine HCl 10-01 00:00: 00 No 5mL [facility] Bupivicaine Lucas Bupivicaine Lucas 09-16 00:00: 00 No 2.5mg [facility] Ketorolac 15mg Ketorolac 15mg 04-20 00:00: 00 No 60mg [facility] Kenalog (Triamcinol one) Kenalog (Triamcinol one) 12-29 00:00: 00 No 40mg [facility] Dexamethaso ne Dexamethaso ne 12-29 00:00: 00 No 10mg [facility] No Known Medications No Known Medications No [facility] cranberry cranberry No cranberry [facility] triamcinolo ne acetonide 55 mcg nasal spray aerosol triamcinolo ne acetonide 55 mcg nasal spray aerosol No triamcinol one acetonide 55 mcg nasal spray aerosol [facility] Immunizations Ordered Immunization Name Filled Immunization Name Date Status Comments Source FluAD FluAD 2019-05-09 14:38:00 Completed [facility] FluAD FluAD 2019-05-09 14:38:00 Completed [facility] FluAD FluAD 2019-05-09 14:38:00 Completed [facility] FluAD FluAD 2019-05-09 14:38:00 Completed [facility] Zostavax Zostavax 2014-10-09 14:38:00 Completed [facility] Zostavax Zostavax 2014-10-09 14:38:00 Completed [facility] Zostavax Zostavax 2014-10-09 14:38:00 Completed [facility] Zostavax Zostavax 2014-10-09 14:38:00 Completed [facility] FluAD FluAD Unknown Completed [facility] Zostavax Zostavax Unknown Completed [facility] FluAD FluAD Unknown Completed [facility] Zostavax Zostavax Unknown Completed [facility] FluAD FluAD Unknown Completed [facility] Zostavax Zostavax Unknown Completed [facility] FluAD FluAD Unknown Completed [facility] Zostavax Zostavax Unknown Completed [facility] FluAD FluAD Unknown Completed [facility] Zostavax Zostavax Unknown Completed [facility] Vital Signs Vital Name Observation Time Observation Value Comments S ource height 2024-10-01 09:30:00 60 [in_i] Commo n [facility] weight 2024-10-01 09:30:00 101.3 [lb_av] Co mmon [facility] temperature 2024-10-01 09:30:00 97.3 [degF] Com mon [facility] bmi 2024-10-01 09:30:00 19.78 kg/m2 Comm on [facility] blood pressure systolic 2024-10-01 09:30:00 122 mm[Hg] [facility] blood pressure diastolic 2024-10-01 09:30:00 70 mm[Hg] [facility] Body Weight 2024-07-18 00:00:00 103.4 [lb_av] [facility] Height 2024-07-18 00:00:00 57 [in_i] [facility] BMI (Body Mass Index) 2024-07-18 00:00:00 22.4 kg/m2 [facility] BP Diastolic 2024-07-18 00:00:00 79 mm[Hg] [facility] BP Systolic 2024-07-18 00:00:00 118 mm[Hg] [facility] BP Diastolic 2024-05-23 00:00:00 62 mm[Hg] [facility] Body Weight 2024-05-23 00:00:00 103.4 [lb_av] [facility] BMI (Body Mass Index) 2024-05-23 00:00:00 22.4 kg/m2 [facility] Height 2024-05-23 00:00:00 57 [in_i] [facility] BP Systolic 2024-05-23 00:00:00 125 mm[Hg] [facility] BMI (Body Mass Index) 2024-05-03 00:00:00 22.4 kg/m2 [facility] Body Weight 2024-05-03 00:00:00 103.4 [lb_av] [facility] BP Diastolic 2024-05-03 00:00:00 71 mm[Hg] [facility] BP Systolic 2024-05-03 00:00:00 120 mm[Hg] [facility] Height 2024-05-03 00:00:00 57 [in_i] [facility] height 2023-06-14 13:15:00 60 [in_i] Commo n [facility] weight 2023-06-14 13:15:00 99 [lb_av] Commo n [facility] bmi 2023-06-14 13:15:00 19.33 kg/m2 Comm on [facility] blood pressure systolic 2023-06-14 13:15:00 119 mm[Hg] [facility] blood pressure diastolic 2023-06-14 13:15:00 74 mm[Hg] [facility] height 2023-04-14 14:00:00 60 [in_i] Commo n [facility] weight 2023-04-14 14:00:00 99 [lb_av] Commo n [facility] temperature 2023-04-14 14:00:00 97.7 [degF] Com mon [facility] bmi 2023-04-14 14:00:00 19.33 kg/m2 Comm on [facility] blood pressure systolic 2023-04-14 14:00:00 112 mm[Hg] [facility] blood pressure diastolic 2023-04-14 14:00:00 74 mm[Hg] [facility] height 2023-03-15 13:00:00 60 [in_i] Commo n [facility] weight 2023-03-15 13:00:00 99 [lb_av] Commo n [facility] temperature 2023-03-15 13:00:00 98.0 [degF] Com mon [facility] bmi 2023-03-15 13:00:00 19.33 kg/m2 Comm on [facility] blood pressure systolic 2023-03-15 13:00:00 136 mm[Hg] [facility] blood pressure diastolic 2023-03-15 13:00:00 74 mm[Hg] [facility] height 2022-09-16 10:00:00 60 [in_i] Commo n [facility] weight 2022-09-16 10:00:00 100 [lb_av] Comm on [facility] temperature 2022-09-16 10:00:00 97.7 [degF] Com [facility] bmi 2022-09-16 10:00:00 19.53 kg/m2 Comm on [facility] blood pressure systolic 2022-09-16 10:00:00 110 mm[Hg] [facility] blood pressure diastolic 2022-09-16 10:00:00 68 mm[Hg] [facility] height 2022-04-20 10:40:00 60 [in_i] Commo n [facility] weight 2022-04-20 10:40:00 106.4 [lb_av] Co mmon [facility] temperature 2022-04-20 10:40:00 97.5 [degF] Com mon [facility] bmi 2022-04-20 10:40:00 20.78 kg/m2 Comm on [facility] oximetry 2022-04-20 10:40:00 99 % Commo n [facility] respiratory rate 2022-04-20 10:40:00 16 /min [facility] blood pressure systolic 2022-04-20 10:40:00 124 mm[Hg] [facility] blood pressure diastolic 2022-04-20 10:40:00 60 mm[Hg] [facility] height 2022-03-16 13:00:00 60 [in_i] Commo n [facility] weight 2022-03-16 13:00:00 104.4 [lb_av] Co mmon [facility] temperature 2022-03-16 13:00:00 98.4 [degF] Com mon [facility] bmi 2022-03-16 13:00:00 20.39 kg/m2 Comm on [facility] blood pressure systolic 2022-03-16 13:00:00 118 mm[Hg] [facility] blood pressure diastolic 2022-03-16 13:00:00 76 mm[Hg] [facility] height 2022-01-05 13:20:00 60 [in_i] Commo n [facility] weight 2022-01-05 13:20:00 106 [lb_av] Comm on [facility] temperature 2022-01-05 13:20:00 97.9 [degF] Com mon [facility] bmi 2022-01-05 13:20:00 20.7 kg/m2 Commo n [facility] oximetry 2022-01-05 13:20:00 96 % Commo n [facility] respiratory rate 2022-01-05 13:20:00 18 /min [facility] blood pressure systolic 2022-01-05 13:20:00 123 mm[Hg] [facility] blood pressure diastolic 2022-01-05 13:20:00 66 mm[Hg] [facility] height 2021-11-16 10:40:00 60 [in_i] Commo n [facility] weight 2021-11-16 10:40:00 104.7 [lb_av] Co mmon [facility] temperature 2021-11-16 10:40:00 97.2 [degF] Com mon [facility] bmi 2021-11-16 10:40:00 20.45 kg/m2 Comm on [facility] oximetry 2021-11-16 10:40:00 100 % Commo n [facility] respiratory rate 2021-11-16 10:40:00 16 /min [facility] blood pressure systolic 2021-11-16 10:40:00 121 mm[Hg] [facility] blood pressure diastolic 2021-11-16 10:40:00 60 mm[Hg] [facility] height 2021-09-29 13:00:00 60 [in_i] Commo n [facility] weight 2021-09-29 13:00:00 108 [lb_av] Comm on [facility] temperature 2021-09-29 13:00:00 98.2 [degF] Com mon [facility] bmi 2021-09-29 13:00:00 21.09 kg/m2 Comm on [facility] blood pressure systolic 2021-09-29 13:00:00 118 mm[Hg] [facility] blood pressure diastolic 2021-09-29 13:00:00 68 mm[Hg] [facility] height 2021-07-06 13:40:00 60 [in_i] Commo n [facility] weight 2021-07-06 13:40:00 109.2 [lb_av] Co mmon [facility] temperature 2021-07-06 13:40:00 97.7 [degF] Com mon [facility] bmi 2021-07-06 13:40:00 21.32 kg/m2 Comm on [facility] oximetry 2021-07-06 13:40:00 98 % Commo n [facility] respiratory rate 2021-07-06 13:40:00 16 /min [facility] blood pressure systolic 2021-07-06 13:40:00 139 mm[Hg] [facility] blood pressure diastolic 2021-07-06 13:40:00 61 mm[Hg] [facility] Procedures Procedure Date / Time Performed Performing Clinicia n Source MAMMO, screening, digital, bilateral 2024-05-23 00:00:00 [facility] Procedure on Knee 2018-09-04 00:00:00 [facility] Hysteroscopy 2016-08-08 00:00:00 [facility] Suspension of Uterus 2011-08-08 00:00:00 [facility] Procedure on Back 2011-08-08 00:00:00 [facility] Ligation of Bilateral Fallopian Tubes [facility] Encounters Start Date/Time End Date/Time Encounter Type Admission Type Attending Clinicians Care Facility Care Department Encounter ID Source 2024-10-01 11:07:00 Outpatient Nicki BUSTOS [facility] [id number] [facility] 2024-09-18 13:37:00 Outpatient Nicki BUSTOS [facility] [id number] [facility] 2023-03-15 13:14:00 Outpatient Nicki BUSTOS [facility] [id number] [facility] 2022-11-25 09:11:01 Outpatient Nicki BUSTOS [facility] [id number] [facility] 2022-09-16 12:00:01 Outpatient Nicki BUSTOS [facility] [id number] [facility] 2022-03-17 11:03:00 Outpatient Bustos, Na STLMLC STL[facility]C [id number] [facility] 2021-12-31 11:18:00 Outpatient Bustos, Na STLMLC ST[facility]C [id number] [facility] 2021-12-09 09:06:02 Outpatient Bustos, Na [facility]LMLC ST[facility]C [id number] [facility] 2021-11-16 09:57:02 Outpatient Bustos, Na STLMLC STL[facility]C [id number] [facility] 2021-09-10 13:01:00 Outpatient Bustos, Na STLMLC STL[facility]C [id number] [facility] 2021-09-09 14:46:01 Outpatient Bustos, Na STLMLC STL[facility]C [id number] [facility] 2021-09-03 09:13:15 Outpatient [id number] [facility] [id number] [id number] [facility] 2021-09-03 09:11:46 Outpatient [id number] [facility] REF [id number] [facility] 2021-09-03 09:11:29 Outpatient 3 [id number] [facility] REF [id number] [facility] 2021-09-03 09:08:29 Outpatient 3 [id number] E[facility] MIKALA [id number] [facility] 2021-09-02 13:39:43 Outpatient Bustos, Na STLMLC STL[facility]C [id number] [facility] 2021-09-02 13:09:08 Outpatient Bustos, Na STLMLC STL[facility]C [id number] [facility] 2021-09-02 13:07:27 Outpatient Bustos, Na STLMLC STL[facility]C [id number] [facility] 2021-09-02 12:35:33 Outpatient Bustos, Na STLMLC STL[facility]C [id number] [facility] 2021-09-02 12:31:31 Outpatient Bustos, Na STLMLC STL[facility]C [id number] [facility] 2021-09-02 12:29:55 Outpatient Bustos, Na STLMLC STL[facility]C [id number] [facility] 2021-09-02 12:21:21 Outpatient Bustos, Na STLMLC STL[facility]C [id number] [facility] 2021-09-02 12:20:41 Outpatient Bustos, Na STLMLC STL[facility]C [id number] [facility] 2021-09-02 12:13:13 Outpatient Bustos, Na STLMLC STL[facility]C [id number] [facility] 2021-09-02 12:12:39 Outpatient Bustos, Na STLMLC STL[facility]C [id number] [facility] 2021-09-02 12:07:04 Outpatient Bustos, Na STLMLC STLMLC [id number] [facility] 2021-09-02 12:06:17 Outpatient Bustos, Na STLMLC STL[facility]C [id number] [facility] 2021-09-02 12:01:09 Outpatient Bustos, Na STLMLC STL[facility]C [id number] [facility] 2021-09-02 11:44:39 Outpatient Bustos, Na STLMLC STL[facility]C [id number] [facility] 2021-09-02 11:34:54 Outpatient Bustos, Na STLMLC ST[facility]C [id number] [facility] 2021-09-02 11:30:52 Outpatient Bustos, Na [facility]LMLC ST[facility]C [id number] [facility] 2021-09-02 11:27:32 Outpatient Anya Hernandez STLMLC STL[facility]C [id number] [facility] 2017-01-20 05:00:00 Inpatient [facility]CED BROOKS [facility] [id number] [facility] 2024-10-01 00:00:00 2024-10-01 00:00:00 OFFICE VISIT ESTAB PT LEVEL 4 [facility] [id number] [facility] 2024-07-18 00:00:00 2024-07-18 00:00:00 GERALD ChackoP: [address], [place] [address] , Ph. [facility] GC_GCBZW_Gemma Galindo* [id number] [facility] 2024-05-23 00:00:00 2024-05-23 00:00:00 GERALD WardP: [address], [place] [address] , Ph. [facility] GC_GCBZW_Gemma Galindo* [id number] [facility] 2024-05-03 00:00:00 2024-05-03 00:00:00 SHAY Lopez: [address], [place] [address] , Ph. [facility] GC_GCBZW_Gemma Galindo* [id number] [facility] 2023-06-14 00:00:00 2023-06-14 00:00:00 OFFICE VISIT ESTAB PT LEVEL 3 [facility] [id number] [facility] 2023-04-14 00:00:00 2023-04-14 00:00:00 OFFICE VISIT ESTAB PT LEVEL 4 [facility] [id number] [facility] 2023-03-16 00:00:00 2023-03-16 00:00:00 (TEL) [facility] [id number] [facility] 2023-03-15 00:00:00 2023-03-15 00:00:00 OFFICE VISIT ESTAB PT LEVEL 4 [facility]LMLC STLMLC [id number] [facility] 2022-09-16 00:00:00 2022-09-16 00:00:00 OFFICE VISIT ESTAB PT LEVEL 4 STLMLC STLMLC [id number] [facility] 2022-04-27 00:00:00 2022-04-27 00:00:00 (TEL) STLMLC STL[facility]C [id number] [facility] 2022-04-22 00:00:00 2022-04-22 00:00:00 (TEL) STLMLC STL[facility]C [id number] [facility] 2022-04-20 00:00:00 2022-04-20 00:00:00 OFFICE VISIT EST PT LEVEL 3 STLMLC STLMLC [id number] [facility] 2022-04-19 00:00:00 2022-04-19 00:00:00 (TEL) STLMLC STLMLC [id number] [facility] 2022-03-16 00:00:00 2022-03-16 00:00:00 OFFICE VISIT ESTAB PT LEVEL 4 [facility]LMLC STLMLC [id number] [facility] 2022-03-04 00:00:00 2022-03-04 00:00:00 Outpatient [facility] [id number] [facility] 2022-01-05 00:00:00 2022-01-05 00:00:00 OFFICE VISIT EST PT LEVEL 3 STLMLC STLMLC [id number] [facility] 2021-12-16 00:00:00 2021-12-16 00:00:00 (TEL) STLMLC STLMLC [id number] [facility] 2021-12-16 00:00:00 2021-12-16 00:00:00 OL DIG E/M SVC 11-20 MIN STLMLC STLMLC [id number] [facility] 2021-12-14 00:00:00 2021-12-14 00:00:00 (TEL) STLMLC STLMLC [id number] [facility] 2021-12-08 00:00:00 2021-12-08 00:00:00 OL PHUC E/M SVC 11-20 MIN STLMLC STLMLC [id number] [facility] 2021-11-23 00:00:00 2021-11-23 00:00:00 (TEL) STLMLC STLMLC [id number] [facility] 2021-11-16 00:00:00 2021-11-16 00:00:00 OFFICE VISIT EST PT LEVEL 3 STLMLC STLMLC [id number] [facility] 2021-11-12 00:00:00 2021-11-12 00:00:00 (TEL) STLMLC STLMLC [id number] [facility] 2021-09-29 00:00:00 2021-09-29 00:00:00 OFFICE VISIT ESTAB PT LEVEL 4 STLMLC STLMLC [id number] [facility] 2021-07-06 00:00:00 2021-07-06 00:00:00 OFFICE VISIT EST PT LEVEL 3 STLMLC STLMLC [id number] [facility] 2021-04-22 00:00:00 2021-04-22 00:00:00 Outpatient STLMLC STLMLC [id number] [facility] 2021-04-17 00:00:00 2021-04-17 00:00:00 Outpatient STLMLC STLMLC [id number] [facility] 2021-04-02 00:00:00 2021-04-02 00:00:00 Outpatient STLMLC STLMLC [id number] [facility] 2021-03-16 00:00:00 2021-03-16 00:00:00 Outpatient STLMLC STLMLC [id number] [facility] 2021-01-15 00:00:00 2021-01-15 00:00:00 Outpatient STLMLC STLMLC [id number] [facility] 2021-01-07 00:00:00 2021-01-07 00:00:00 Outpatient STLMLC STLMLC [id number] [facility] 2021-01-07 00:00:00 2021-01-07 00:00:00 Outpatient STLMLC STLMLC [id number] [facility] 2021-01-06 00:00:00 2021-01-06 00:00:00 Outpatient STLMLC STLMLC [id number] [facility] 2020-12-30 00:00:00 2020-12-30 00:00:00 Outpatient STLMLC STLMLC [id number] [facility] 2020-10-05 00:00:00 2020-10-05 00:00:00 Outpatient STLMLC STLMLC [id number] [facility] 2020-09-29 00:00:00 2020-09-29 00:00:00 Outpatient STLMLC STLMLC [id number] [facility] 2020-09-29 00:00:00 2020-09-29 00:00:00 Outpatient STLMLC STLMLC [id number] [facility] 2020-09-15 00:00:00 2020-09-15 00:00:00 Outpatient STLMLC STLMLC [id number] [facility] 2020-09-08 00:00:00 2020-09-08 00:00:00 Outpatient STLMLC STLMLC [id number] [facility] 2020-08-22 00:00:00 2020-08-22 00:00:00 Outpatient STLMLC STLMLC [id number] [facility] 2020-07-21 00:00:00 2020-07-21 00:00:00 Outpatient STLMLC STLMLC [id number] [facility] 2020-07-11 00:00:00 2020-07-11 00:00:00 Outpatient STLMLC STLMLC [id number] [facility] 2020-06-27 00:00:00 2020-06-27 00:00:00 Outpatient STLMLC STLMLC [id number] [facility] 2020-06-20 00:00:00 2020-06-20 00:00:00 Outpatient STLMLC STLMLC [id number] [facility] 2020-06-11 00:00:00 2020-06-11 00:00:00 Outpatient [facility]LMLC ST[facility]C [id number] [facility] 2020-04-15 10:00:00 2020-04-15 10:00:00 Outpatient [facility] [id number] [facility] 2020-03-18 10:20:00 2020-03-18 10:20:[address] [facility] [id number] [facility] 2020-03-12 15:00:00 2020-03-12 15:00:00 [facility] [id number] [facility] 2020-03-11 15:52:00 2020-03-11 15:52:[address] [facility] [id number] [facility] 2020-03-11 14:31:00 2020-03-11 14:31:[address] [facility] [id number] [facility] 2020-03-11 10:00:00 2020-03-11 10:00:00 Outpatient [facility] [id number] [facility] 2020-02-26 08:46:00 2020-02-26 08:46:[address] [facility] [id number] [facility] 2020-02-20 15:31:00 2020-02-20 15:31:[address] [facility] [id number] [facility] 2020-02-18 09:00:00 2020-02-18 09:00:00 Outpatient [facility] [id number] [facility] 2020-01-25 14:30:00 2020-01-25 14:30:00 Outpatient [facility] [id number] [facility] Results Test Description Test Time Test Comments Results Result Co mments Source [facility] Urine by [id number] 00:00:00* Test Item Value Reference Range Interpretation Comme nts urine culture, routine (test code = urine culture, routine) Final report A result 1 (test code = result 1) Escherichia coli A antimicrobial susceptibility (test code = antimicrobial susceptibility) Comment [facility], [id number] 00:00:00* Test Item Value Reference Range Interpretation Comme nts WBC (test code = WBC) None seen 0-5 RBC (test code = RBC) None seen 0-2 epithelial cells (non renal) (test code = epithelial cells (non renal)) None seen 0-10 epithelial cells (renal) (te st code = epithelial cells (renal)) Comment casts (test code = casts) None seen none seen cast type (test code = cast type) Comment crystals (test code = crystals) Comment crystal type (test code = cr ystal type) Comment mucus threads (test code = m ucus threads) Comment bacteria (test code = bacteria) Many none seen/few A yeast (test code = yeast) Comment trichomonas (test code = trichomonas) Comment comment (test code = comment) Comment [facility] complete W Reflex Culture panel - [id number] 00:00:00* Test Item Value Reference Range Interpretation Comme nts specific gravity (test code = specific gravity) 1.008 1.005-1.030 pH (test code = pH) 6.0 5.0-7.5 urine-color (test code = urine-color) YELLOW yellow appearance (test code = appearance) CLEAR clear WBC esterase (test code = WB C esterase) NEGATIVE negative protein (test code = protein) NEGATIVE negative/trace glucose (test code = glucose) NEGATIVE negative ketones (test code = ketones) NEGATIVE negative occult blood (test code = oc cult blood) NEGATIVE negative bilirubin (test code = bilirubin) NEGATIVE negative urobilinogen,semi-qn (test c ode = urobilinogen,semi-qn) 0.2 mg/dL 0.2-1.0 nitrite, urine (test code = nitrite, urine) POSITIVE negative A microscopic examination (flor t code = microscopic examination) urinalysis reflex (test code = urinalysis reflex) [id number] 13:54:00* Test Item Value Reference Range Interpretation Comme nts Leukocytes (test code = Leukocytes) Negative Nitrite (test code = Nitrite) negative Urobilinogen (test code = Urobilinogen) Normal Protein (test code = Protein) Negative pH (test code = pH) 6.0 Blood (test code = Blood) 1+ Specific [place] (test code = Specific [place]) 1.005 Ketone (test code = Ketone) Negative Bilirubin (test code = Bilirubin) Negative Glucose (test code = Glucose) Negative Appearance (test code = Appearance) Slightly Cloudy Color (test code = Color) Pale Yellow [facility]
--- NOTE | 2024-10-23 14:57 | RAD REPORT ---
EXAM: CT brain without contrast HISTORY: weakness, foot drop COMPARISON: 03/06/2024 TECHNIQUE: Multiple contiguous axial images were obtained and a CT of the brain without contrast. Sag ittal and coronal reformats were performed. One or more of the following dose reduction techniques were used: Automated exposure control, adjust ment of the mA and/or kV according to patient size, and/or iterative reconstruction. FINDINGS: No evidence of hydrocephalus, intracranial hemorrhage, or extra-axial fluid collection. Moderate brain atrophy with mild periventricular and deep white matter chronic microvascular ischemi c changes present. No evidence of midline shift or areas of brain edema. The calvarium is intact. The visualized paranasal sinuses and mastoid air cells are essentially clear . IMPRESSION: No evidence of acute intracranial abnormality.
--- NOTE | 2024-10-23 15:20 | RAD REPORT ---
EXAMINATION: ONE VIEW CHEST XR CLINICAL INDICATION: weaknes TECHNIQUE: Frontal chest projection is submitted. Examination is limited by patient positioning and t echnique. COMPARISON: 06/15/2022 FINDINGS: The lungs are well inflated and clear. The heart is normal in size. No displaced fractures identified . IMPRESSION: No acute intrathoracic abnormalities.
--- NOTE | 2024-10-23 15:20 | RAD REPORT ---
EXAMINATION: CT LUMBAR SPINE WITHOUT CONTRAST CLINICAL INDICATION: Female, 79 years old. pain TECHNIQUE: Axial CT images were obtained through the lumbar spine in soft tissue and bone windows wit hout intravenous contrast. Coronal and Sagittal reformatted images were created from the data set. One or more of the following dose reduction techniques were used: Automated exposure control, adjustm ent of the mA and/ or kV according to patient size, and/or iterative reconstruction. Unless otherwise specified, incidental findings do not require dedicated imaging follow-up. COMPARISON: No prior exam. FINDINGS: For purposes of this dictation, it is assumed that there are 5 non rib-bearing lumbar type vertebrae, and the most caudal fully segmented lumbar vertebra is labeled L5. ALIGNMENT: Moderate degenerative dextroscoliosis. 6 mm anterolisthesis L4 on 5. 5 mm degenerative ret rolisthesis L1 on 2. BONES: No significant soft tissue abnormalities. No aggressive osseous lesions. DISCS: Intervertebral disc space heights are maintained. LEVELS: Moderate central canal stenosis suspected at L3-4. SOFT TISSUE: Prominent diverticulosis coli of the sigmoid colon without diverticulitis. IMPRESSION: No acute lumbar spine abnormalities. Moderately severe degenerative dextroscoliosis as detailed above.
[2024-10-23 15:47] LABS: Absolute Eosinophils 0.1 K/uL (0-0.5); Absolute Lymphocytes (CBC) 1.6 K/uL (0.7-4.9); Absolute Monocytes 0.4 K/uL (0.1-1.3); Absolute Neutrophil 2.8 K/uL (1.8-8.0); Basophils % 0.6 % (0-1.3); Hematocrit 38.2 % (36.0-45.0); Hemoglobin 13.5 g/dL (12.0-15.0); Lymphocytes % 32.5 % (15.3-44.8); MCH 31.7 pg (27.0-35.0); MCHC 35.2 g/dL (32.0-36.0); MPV 7.9 fL (7.6-11.3); Monocytes % 8.9 % (3.3-12.3); Platelets 250 thou/uL (152-406); RBC Red Blood Cell Count 4.25 M/uL (3.86-4.86); Red Cell Distribution Width 13.4 % (12.1-15.2)
[2024-10-23 15:59] LABS: Anion Gap 10.5 mEq/L (5.0-15.0); Potassium 3.5 mEq/L (3.5-5.1); Troponin High Sensitivity 4.4 pg/mL (<58.9)
[2024-10-23 16:11] LABS: Specific Gravity 1.012 (1.005-1.030); Sqamous Epithelial None Seen /HPF (None Seen); Urine Bacteria None Seen /HPF (<20); Urine Bilirubin NEGATIVE (Negative); Urine Blood Negative (Negative); Urine Clarity Turbid (Clear); Urine Color Colorless (Yellow); Urine Crystals Unidentified Few /HPF (None Seen); Urine Culture Reflex Order NOT NEEDED; Urine Glucose NEGATIVE (Negative); Urine Ketones NEGATIVE (Negative); Urine Micro Reflex YN NO BILL MICROSCOPIC; Urine Nitrite NEGATIVE (Negative); Urine Protein NEGATIVE (Negative); Urine RBC <5 /HPF (None Seen); Urine Urobilinogen Normal (Normal); Urine WBC <5 /HPF (<5); Urine WBC Clump Rare /HPF (None Seen)
--- NOTE | 2024-10-23 16:52 | ER ---
Nurse's Notes [facility] Name: Sarah Chapman Age: 79 yrs Sex: Female : 1945 Arrival Date: 10/23/2024 Time: 13:15 Bed 20 Private MD: Diagnosis: Right foot drop Presentation: 10/23 15:30 Chief complaint: Friend and/or Co-Worker states: "SHE FELT WEAK AT [employer] AND WE WENT bp AND SAW THE ER. THEY SAID TO FOLLOW UP AT HER DOCTOR, AND NOW WE'RE HERE.". Coronavirus screen: At this time, the client does not indicate any symptoms associated with coronavirus-19. Ebola Screen: No symptoms or risks identified at this time. Initial Sepsis Screen: Does the patient meet any 2 criteria? No. Patient's initial sepsis screen is negative. Does the patient have a suspected source of infection? No. Patient's initial sepsis screen is negative. Risk Assessment: Do you want to hurt yourself or someone else? Patient reports no desire to harm self or others. Onset of symptoms is unknown. 15:30 Method Of Arrival: Ambulatory bp 15:30 Acuity: LANCE 3 bp Triage Assessment: 15:32 General: Appears in no apparent distress. comfortable, Behavior is calm, cooperative, bp appropriate for age. Pain: Denies pain. EENT: No deficits noted. Neuro: Level of Consciousness is awake, alert, obeys commands, Oriented to Appropriate for age. Cardiovascular: No deficits noted. Respiratory: No deficits noted. GI: No signs and/or symptoms were reported involving the gastrointestinal system. : No signs and/or symptoms were reported regarding the genitourinary system. Derm: No deficits noted. Musculoskeletal: No deficits noted. Injury Description: NONE. Historical: - Allergies: 15:32 No Known Allergies; bp - PMHx: 15:32 Hypercholesterolemia; bp - PSHx: 15:32 R knee; bp - Immunization history:: Adult Immunizations up to date. - Infectious Disease History:: Denies. - Social history:: Smoking status: Patient denies any tobacco usage or history of. Screenin:33 [facility] ED Fall Risk Assessment (Adult) History of falling in the last 3 months, bp including since admission No falls in past 3 months (0 pts) Confusion or Disorientation No (0 pts) Intoxicated or Sedated No (0 pts) Impaired Gait No (0 pts) Mobility Assist Device Used No (0 pt) Altered Elimination No (0 pt) Score/Fall Risk Level 0 - 2 = Low Risk Oriented to surroundings. Abuse screen: Denies threats or abuse. Denies injuries from another. Nutritional screening: No deficits noted. Tuberculosis screening: No symptoms or risk factors identified. Assessment: 14:16 Reassessment: pt not in lobby, registration reports pt left , I called pt on phone, iw states she will return to be seen now. Vital Signs: 15:30 BP 154 / 70; Pulse 64; Resp 16; Temp 98; Pulse Ox 100% ; bp 17:00 BP 137 / 81; Pulse 65; Resp 16; Pulse Ox 97% ; bp ED Course: 14:07 Patient arrived in ED. cj3 14:24 Sanju Rosado DO is Attending Physician. ms3 14:39 Frandy Colbert, RN is Primary Nurse. bp 14:49 Spine Lumbar Wo Con In Process Unspecified. EDMS 14:50 CT Head Brain wo Cont In Process Unspecified. EDMS 15:05 XRAY Chest (1 view) In Process Unspecified. EDMS 15:30 Initial lab(s) drawn, by me, sent to lab. Inserted saline lock: 22 gauge in right bp antecubital area, using aseptic technique. Blood collected. Flushed with 10 mL NS. 15:32 Triage completed. bp 15:32 Arm band placed on. bp 15:33 Patient has correct armband on for positive identification. bp 16:50 Ellen Nesbitt MD is Referral Physician. ms3 17:00 No provider procedures requiring assistance completed. IV discontinued, intact, bp bleeding controlled, No redness/swelling at site. Pressure dressing applied. Administered Medications: No medications were administered Outcome: 16:51 Discharge ordered by MD. ms3 17:00 Discharged to home ambulatory, with family, bp 17:00 Condition: stable 17:00 Discharge instructions given to patient, Instructed on discharge instructions, follow up and referral plans. Demonstrated understanding of instructions, follow-up care, 17:01 Patient left the ED. bp Signatures: Dispatcher [employer] Greer Ho RN RN iw Frandy Colbert RN RN bp Sanju Rosado DO DO ms3 Rosa Harris cj3
--- NOTE | 2024-10-23 16:52 | EDPHYS ---
Physician Documentation [facility] Name: Sarah Chapman Age: 79 yrs Sex: Female : 1945 Arrival Date: 10/23/2024 Time: 13:15 Bed 20 Private MD: ED Physician Sanju Rosado HPI: 10/23 17:55 This 79 yrs old Female presents to ER via Ambulatory with complaints of Foot ms3 Injury. 17:55 79-year-old female with past medical history of hyperlipidemia presents to the [facility] emergency department from Dr. Nesbitt's office for right foot drop and knee weakness on Tuesday. Patient states since she had surgery with Dr. Sommer 2 years ago she has had a right foot drop. Patient states on Tuesday her knees became weak and she was seen at [facility]. Patient denies symptoms at this time.. Historical: - Allergies: 15:32 No Known Allergies; bp - PMHx: 15:32 Hypercholesterolemia; bp - PSHx: 15:32 R knee; bp - Immunization history:: Adult Immunizations up to date. - Infectious Disease History:: Denies. - Social history:: Smoking status: Patient denies any tobacco usage or history of. ROS: 17:55 Constitutional: Negative for fever, and chills. Cardiovascular: Negative for chest ms3 pain, and palpitations. Respiratory: Negative for shortness of breath, cough, wheezing, and pleuritic chest pain, Abdomen/GI: Negative for abdominal pain, nausea, vomiting, diarrhea, and constipation, 17:55 MS/extremity: Positive for Known right foot drop, new weakness on Tuesday, Exam: 17:55 Constitutional: This is a well developed, well nourished patient who is awake, alert, ms3 and in no acute distress. Cardiovascular: Regular rate and rhythm with a normal S1 and S2. No gallops, murmurs, or rubs. Normal PMI, no JVD. No pulse deficits. Respiratory: Lungs have equal breath sounds bilaterally, clear to auscultation and percussion. No rales, rhonchi or wheezes noted. No increased work of breathing, no retractions or nasal flaring. Abdomen/GI: Soft, non-tender, with normal bowel sounds. No distension or tympany. No guarding or rebound. No evidence of tenderness throughout. Skin: Warm, dry with normal turgor. Normal color with no rashes, no lesions, and no evidence of cellulitis. 17:55 Neuro: Mentation: is normal, Motor: Right foot drop, Vital Signs: 15:30 BP 154 / 70; Pulse 64; Resp 16; Temp 98; Pulse Ox 100% ; bp 17:00 BP 137 / 81; Pulse 65; Resp 16; Pulse Ox 97% ; bp MDM: 14:24 Medical Screening Exam initiated ms3 14:35 Management of patient was discussed with the following: Primary Care Provider: ms3 Discussed case with Dr. Nesbitt and he would like basic labs, urine, CT head, lumbar spine x-ray. 17:55 Differential diagnosis: Right foot drop versus electrolyte abnormality versus ms3 intracranial abnormality. Data reviewed: vital signs, nurses notes, lab test result(s), EKG, and as a result, I will discharge patient. Independent interpretation of the following test(s) in the Emergency Department EKG: See my EKG interpretation above. Counseling: I had a detailed discussion with the patient and/or guardian regarding the historical points, exam findings, and any diagnostic results supporting the discharge/admit diagnosis, lab results, radiology results, the need for outpatient follow up, to return to the emergency department if symptoms worsen or persist or if there are any questions or concerns that arise at home. Special discussion: I discussed with the patient/guardian in detail that at this point there is no indication for admission to the hospital. It is understood, however, that if the symptoms persist or worsen the patient needs to return immediately for re-evaluation. ED course: Requesting to be discharged. Discussed results with Dr. Nesbitt and patient has to follow-up with him this week. Patient understands and agrees with plan. All questions were answered. Return precautions discussed include worsening symptoms, or any other concerns. On reevaluation patient is alert, no apparent distress, nontoxic-appearing, ambulatory in the emergency department, speaking full sentences. 10/23 14:35 Order name: Basic Metabolic Panel; Complete Time: 16:02 10/23 14:35 Order name: CBC with Diff; Complete Time: 15:55 ms3 10/23 14:35 Order name: Troponin HS; Complete Time: 16:02 3 10/23 14:36 Order name: Urinalysis W/Microscopic; Complete Time: 16:49 ms3 10/23 14:35 Order name: XRAY Chest (1 view); Complete Time: 15:55 ms3 10/23 14:35 Order name: CT Head Brain wo Cont; Complete Time: 15:55 ms3 10/23 14:49 Order name: Spine Lumbar Wo Con; Complete Time: 15:55 EDMS 10/23 14:35 Order name: Cardiac monitoring; Complete Time: 15:30 ms3 10/23 14:35 Order name: EKG - Nurse/Tech; Complete Time: 16:30 ms3 10/23 14:35 Order name: IV Saline Lock; Complete Time: 15:30 ms3 10/23 14:35 Order name: Labs collected and sent; Complete Time: 15:30 ms3 10/23 14:35 Order name: O2 Per Protocol; Complete Time: 15:30 ms3 10/23 14:35 Order name: O2 Sat Monitoring; Complete Time: 15:30 ms3 Administered Medications: No medications were administered Disposition Summary: 10/23/24 16:51 Discharge Ordered Notes: Location: Home ms3 Condition: Stable ms3 Diagnosis - Right foot drop ms3 Followup: ms3 - With: Ellen Nesbitt MD - When: 2 - 3 days - Reason: Recheck today's complaints Discharge Instructions: - Discharge Summary Sheet ms3 - Peripheral Neuropathy ms3 Forms: - Medication Reconciliation Form ms3 - Antibiotic Education ms3 - Prescription Opioid Use ms3 - Patient Portal Instructions ms3 - Leadership Thank You Letter ms3 Signatures: Dispatcher [employer] EDFrandy Stafford RN RN Sanju Nguyen DO DO ms3 Corrections: (The following items were deleted from the chart) 14:35 14:35 Head Brain Wo Cont+CT.RAD.BRZ ordered. EDMS EDMS 14:36 14:36 Lumbar Spine 3 Views+RAD.RAD.BRZ ordered. EDMS EDMS
[2024-10-23 20:31] VITALS: TEMP 98
[2024-10-23 20:36] VITALS: BP 137/81; O2SAT 97
== END 2024-10-23 17:01 | disposition home or self-care (01) ==
LOC: ER 13:15
DX: M21.371 Foot drop, right foot (principal); R53.1 Weakness
CPT/HCPCS: 36415; 70450; 71045; 72131; 80048; 81001; 84484; 85025; 99283